=== PATIENT | female | born 1990 | race Caucasian/White ===

== ENCOUNTER 2016-11-24 00:27 | Inpatient (IN) | payer OTHER ==
[2016-11-24] MEDS ORDERED: OXYTOCIN/NORMAL SALINE 1,000 ML IV PRN ×2 (00:39→20:55)
[2016-11-24] MEDS ORDERED: DINOPROSTONE 10 MG VAGINAL INSERT.SR PV PRN (00:39)
[2016-11-24] MEDS ORDERED: RINGERS SOLUTION,LACTATED 300 ML IV ONE (00:39)
[2016-11-24] MEDS ORDERED: RINGERS SOLUTION,LACTATED 1,000 ML IV PRN (00:39)
[2016-11-24] MEDS ORDERED: MAG HYDROX/AL HYDROX/SIMETH SUSP 30 ML UDCUP PO PRN (00:41)
[2016-11-24] MEDS ORDERED: ACETAMINOPHEN 325 MG TABLET PO PRN (00:41)
[2016-11-24] MEDS ORDERED: ZOLPIDEM TARTRATE 5 MG TABLET PO SCH (00:45)
[2016-11-24 01:08] LABS: APPEARANCE,URINE CLOUDY; BILIRUBIN,URINE NEGATIVE (NEGATIVE); GLUCOSE, URINE NEGATIVE (NEGATIVE); KETONES,URINE NEGATIVE (NEGATIVE); LEUKOCYTE ESTERASE,URINE LARGE (NEGATIVE); NITRITE,URINE NEGATIVE (NEGATIVE); PROTEIN,URINE NEGATIVE (NEGATIVE); URINE SPECIFIC GRAVITY 1.017; UROBILINOGEN,URINE NEGATIVE mg/dL (<2.0)
[2016-11-24] MEDS ORDERED: DINOPROSTONE 10 MG VAGINAL INSERT.SR ONE (01:20)
[2016-11-24 01:24] LABS: ABSOLUTE EOSINOPHILS # (AUTO) 0.1 10^3/uL (0.0-0.6); ABSOLUTE LYMPHOCYTES (AUTO) 2.4 10^3/uL (0.5-4.7); ABSOLUTE MONOCYTES (AUTO) 0.7 10^3/uL (0.1-1.4); ABSOLUTE NEUT (AUTO) 8.1 10^3/uL (1.7-8.2); BASOPHILS % (AUTO) 0.3 % (0-2); EOSINOPHILS % (AUTO) 0.8 % (0-6); HEMATOCRIT 35.9 % (36.0-47.0); HEMOGLOBIN 12.2 g/dL (12.0-15.5); HGB HCT DIFFERENCE 0.7; LYMPHOCYTES % (AUTO) 21.2 % (13-45); MEAN CORPUSCULAR HEMOGLOBIN 29.7 pg (27.0-33.4); MEAN CORPUSCULAR HGB CONC 34.1 g/dL (32.0-36.0); MEAN CORPUSCULAR VOLUME 87 fl (80-97); MONOCYTES % (AUTO) 6.1 % (3-13); RED BLOOD COUNT 4.11 10^6/uL (3.72-5.28); RED CELL DISTRIBUTION WIDTH 14.8 % (11.5-14.0); SEGMENTED NEUTROPHILS % (AUTO) 71.6 % (42-78); WHITE BLOOD COUNT 11.3 10^3/uL (4.0-10.5)
[2016-11-24 01:36] LABS: URINE BARBITURATES SCREEN NEGATIVE; URINE METHADONE SCREEN NEGATIVE; URINE OPIATES LOW NEGATIVE; URINE PHENCYCLIDINE SCREEN NEGATIVE
--- NOTE | 2016-11-24 08:00 | L&D Flow Sheet ---
LD Flowsheet Datetime Report Generated by CPN: 11/24/2016 08:00 Datetime: 11/24/2016 07:45 NBP Sys/Erika/Mean (mmHg): 127 (QS system process) : 80 (QS system process) : 97 (QS system process) Pulse: 82 (QS system process) Maternal Assessment Level of Consciousness: Fully Conscious (Toma Arteaga [facility]) DTR's/Clonus: DTRs 2+; No Clonus (Toma Chandler, RNC) Headache: Denies (Toma Chandler, RNC) Breath Sounds, Left: Clear and Equal (Toma Arteaga, RNC) Breath Sounds, Right: Clear and Equal (Tomaperla Arteaga, RNC) Nausea/Vomiting: Denies (Toma Chandler, RNC) RUQ Epigastric Pain: Denies (Tomaperla Arteaga, RNC) Communication LaborFlag: Labor (QS system process) Datetime: 11/24/2016 07:00 Respirations: 18 (Janette Suazo) Uterine Activity Monitor Mode: External; Palpation (Janette Suazo) Monitor Interventions for UA: [place] Adjusted (Janette Suazo) Frequency (min): occasional (Janette Suazo) Quality: Mild (Janette Suazo) Duration (sec): 90-110 (Janette Suazo) Resting Tone (Palpate): Relaxed (Janette Suazo) Assessment A Monitor Mode: External US (Janette Suazo) Monitor Interventions for FHR: Ultrasound Adjusted (Janette Suazo) FHR Baseline Rate : 130 (Janette Suazo) FHR Baseline Changes: No Baseline Change (Janette Suazo) Variability: Moderate 6-25 bpm (Janette Suazo) Accelerations: 15X15 (Janette Suazo) Decelerations: None (Janette Suazo) Patient Position/Activity: Left Lateral (Janette Suazo) Communication LaborFlag: Labor (QS system process) Datetime: 11/24/2016 06:45 NBP Sys/Eriak/Mean (mmHg): 109 (QS system process) : 69 (QS system process) : 84 (QS system process) Pulse: 78 (QS system process) Communication LaborFlag: Labor (QS system process) Datetime: 11/24/2016 06:30 Respirations: 18 (Janette Suazo) Uterine Activity Monitor Mode: External; Palpation (Janette Suazo) Monitor Interventions for UA: [place] Adjusted (Janette Suazo) Frequency (min): none (Janette Suazo) Resting Tone (Palpate): Relaxed (Janette Suazo) Assessment A Monitor Mode: External US (Janette Suazo) Monitor Interventions for FHR: Ultrasound Adjusted (Janette Suazo) FHR Baseline Rate : 125 (Janette Suazo) FHR Baseline Changes: No Baseline Change (Janette Suazo) Variability: Moderate 6-25 bpm (Janette Suazo) Accelerations: 15X15 (Janette Suazo) Decelerations: None (Janette Suazo) Patient Position/Activity: Left Lateral (Janette Suazo) Communication LaborFlag: Labor (QS system process) Datetime: 11/24/2016 06:15 NBP Sys/Erika/Mean (mmHg): 111 (QS system process) : 71 (QS system process) : 87 (QS system process) Pulse: 72 (QS system process) Communication LaborFlag: Labor (QS system process) Datetime: 11/24/2016 06:00 Respirations: 18 (Janette Suazo) Uterine Activity Monitor Mode: External; Palpation (Janette Suazo) Monitor Interventions for UA: [place] Adjusted (Janette Suazo) Frequency (min): one ctx noted (Janette Suazo) Quality: Mild (Janette Suazo) Resting Tone (Palpate): Relaxed (Janette Suazo) Assessment A Monitor Mode: External US (Janette Suazo) Monitor Interventions for FHR: Ultrasound Adjusted (Janette Suazo) FHR Baseline Rate : 120 (Janette Suazo) FHR Baseline Changes: No Baseline Change (Janette Suazo) Variability: Moderate 6-25 bpm (Janette Suazo) Accelerations: 10X10 (Janette Suazo) Decelerations: None (Janette Suazo) Patient Position/Activity: Left Lateral (Janette Suazo) Communication LaborFlag: Labor (QS system process) Datetime: 11/24/2016 05:47 NBP Sys/Erika/Mean (mmHg): 114 (QS system process) : 70 (QS system process) : 88 (QS system process) Pulse: 73 (QS system process) Communication LaborFlag: Labor (QS system process) Datetime: 11/24/2016 05:33 Patient Care Comments: patient up to the restroom (Janette Suazo) Datetime: 11/24/2016 05:32 Respirations: 18 (Janette Suazo) Uterine Activity Monitor Mode: External; Palpation (Janette Suazo) Monitor Interventions for UA: [place] Adjusted (Janette Suazo) Frequency (min): none (Janette Suazo) Resting Tone (Palpate): Relaxed (Janette Suazo) Assessment A Monitor Mode: External US (Janette Suazo) Monitor Interventions for FHR: Ultrasound Adjusted (Janette Suazo) FHR Baseline Rate : 120 (Janette Suazo) Variability: Moderate 6-25 bpm (Janette Suazo) Accelerations: 10X10 (Janette Suazo) Decelerations: None (Janette Suzao) Patient Position/Activity: Left Lateral (Janette Suazo) Communication LaborFlag: Labor (QS system process) Datetime: 11/24/2016 05:15 NBP Sys/Erika/Mean (mmHg): 123 (QS system process) : 71 (QS system process) : 91 (QS system process) Pulse: 75 (QS system process) Communication LaborFlag: Labor (QS system process) Datetime: 11/24/2016 05:00 Respirations: 18 (Janette Suazo) Uterine Activity Monitor Mode: External; Palpation (Janette Suazo) Frequency (min): none (Janette Suazo) Resting Tone (Palpate): Relaxed (Janette Suazo) Assessment A Monitor Mode: External US (Janette Suazo) Monitor Interventions for FHR: Ultrasound Adjusted (Janette Suazo) FHR Baseline Rate : 130 (Janette Suazo) Variability: Moderate 6-25 bpm (Janette Suazo) Accelerations: 15X15 (Janette Suazo) Decelerations: None (Janette Suazo) Patient Position/Activity: Left Lateral (Janette Suazo) Communication LaborFlag: Labor (QS system process) Datetime: 11/24/2016 04:45 Patient Care Comments: patient up to the restroom (Janette Suazo) Datetime: 11/24/2016 04:29 Respirations: 18 (Janette Suazo) Uterine Activity Monitor Mode: External; Palpation (Janette Suazo) Monitor Interventions for UA: [place] Adjusted (Janette Suazo) Frequency (min): one ctx noted (Janette Suazo) Resting Tone (Palpate): Relaxed (Janette Suazo) Assessment A Monitor Mode: External US (Janette Suazo) Monitor Interventions for FHR: Ultrasound Adjusted (Janette Suazo) FHR Baseline Rate : 120 (Janette Suazo) FHR Baseline Changes: No Baseline Change (Janette Suazo) Variability: Moderate 6-25 bpm (Janette Suazo) Accelerations: 15X15 (Janette Suazo) Decelerations: None (Janette Suazo) Patient Position/Activity: Left Lateral (Janette Suazo) Communication LaborFlag: Labor (QS system process) Datetime: 11/24/2016 04:15 NBP Sys/Erika/Mean (mmHg): 115 (QS system process) : 71 (QS system process) : 88 (QS system process) Pulse: 77 (QS system process) Communication LaborFlag: Labor (QS system process) Datetime: 11/24/2016 04:00 Respirations: 18 (Janette Suazo) Uterine Activity Monitor Mode: External; Palpation (Janette Suazo) Monitor Interventions for UA: [place] Adjusted (Janette Suazo) Frequency (min): none (Janette Suazo) Resting Tone (Palpate): Relaxed (Janette Suazo) Assessment A Monitor Mode: External US (Janette Suazo) Monitor Interventions for FHR: Ultrasound Adjusted (Janette Suazo) FHR Baseline Rate : 120 (Janette Suazo) Variability: Moderate 6-25 bpm (Janette Suazo) Accelerations: 15X15 (Janette Suazo) Decelerations: None (Janette Suazo) Patient Position/Activity: Left Lateral (Janette Suazo) Communication LaborFlag: Labor (QS system process) Datetime: 11/24/2016 03:45 NBP Sys/Erika/Mean (mmHg): 125 (QS system process) : 85 (QS system process) : 100 (QS system process) Pulse: 74 (QS system process) Communication LaborFlag: Labor (QS system process) Datetime: 11/24/2016 03:30 Respirations: 18 (Janette Suazo) Uterine Activity Monitor Mode: External; Palpation (Janette Suazo) Monitor Interventions for UA: [place] Adjusted (Janette Suazo) Frequency (min): none (Janette Suazo) Resting Tone (Palpate): Relaxed (Janette Suazo) Assessment A Monitor Mode: External US (Janette Suazo) Monitor Interventions for FHR: Ultrasound Adjusted (Janette Suazo) FHR Baseline Rate : 120 (Janette Suazo) FHR Baseline Changes: No Baseline Change (Janette Suazo) Variability: Moderate 6-25 bpm (Janette Suazo) Accelerations: 10X10 (Janette Suazo) Decelerations: None (Janette Suazo) Patient Position/Activity: Left Lateral (Janette Suazo) Communication LaborFlag: Labor (QS system process) Datetime: 11/24/2016 03:16 NBP Sys/Erika/Mean (mmHg): 124 (QS system process) : 69 (QS system process) : 90 (QS system process) Pulse: 80 (QS system process) Communication LaborFlag: Labor (QS system process) Datetime: 11/24/2016 02:57 Respirations: 18 (Janette Suazo) Uterine Activity Monitor Mode: External; Palpation (Janette Suazo) Monitor Interventions for UA: [place] Adjusted (Janette Suazo) Frequency (min): none (Janette Suazo) Resting Tone (Palpate): Relaxed (Janette Suazo) Assessment A Monitor Mode: External US (Janette Suazo) Monitor Interventions for FHR: Ultrasound Adjusted (Janette Suazo) FHR Baseline Rate : 120 (Janette Suazo) FHR Baseline Changes: No Baseline Change (Janette Suazo) Variability: Moderate 6-25 bpm (Janette Suazo) Accelerations: 15X15 (Janette Suazo) Decelerations: None (Janette Suazo) Patient Position/Activity: Right Lateral (Janette Suazo) Patient Care Comments: patient up to the restroom. (Janette Suazo) Communication LaborFlag: Labor (QS system process) Datetime: 11/24/2016 02:46 NBP Sys/Erika/Mean (mmHg): 111 (QS system process) : 76 (QS system process) : 88 (QS system process) Pulse: 76 (QS system process) Communication LaborFlag: Labor (QS system process) Datetime: 11/24/2016 02:30 Respirations: 18 (Janette Suazo) Uterine Activity Monitor Mode: External; Palpation (Janette Suazo) Monitor Interventions for UA: [place] Adjusted (Janette Suazo) Frequency (min): none (Janette Suazo) Resting Tone (Palpate): Relaxed (Janette Suazo) Comments: rn at the bedside for fhr adjustment and maternal repositioning (Janette Suazo) Patient Position/Activity: Right Lateral (Janette Suazo) Communication LaborFlag: Labor (QS system process) Datetime: 11/24/2016 02:15 NBP Sys/Erika/Mean (mmHg): 116 (QS system process) : 67 (QS system process) : 86 (QS system process) Pulse: 76 (QS system process) Communication LaborFlag: Labor (QS system process) Datetime: 11/24/2016 02:00 Respirations: 18 (Janette Suazo) Uterine Activity Monitor Mode: External; Palpation (Janette Suazo) Monitor Interventions for UA: [place] Adjusted (Janette Suazo) Frequency (min): none (Janette Suazo) Resting Tone (Palpate): Relaxed (Janette Suazo) Assessment A Monitor Mode: External US (Janette Suazo) Monitor Interventions for FHR: Ultrasound Adjusted (Janette Suazo) FHR Baseline Rate : 120 (Janette Suazo) Variability: Moderate 6-25 bpm (Janette Suazo) Accelerations: 15X15 (Janette Suazo) Decelerations: None (Janette Suazo) Patient Position/Activity: Left Lateral (Janette Suazo) Communication LaborFlag: Labor (QS system process) Datetime: 11/24/2016 01:45 NBP Sys/Erika/Mean (mmHg): 120 (QS system process) : 74 (QS system process) : 89 (QS system process) Pulse: 76 (QS system process) Communication LaborFlag: Labor (QS system process) Datetime: 11/24/2016 01:30 Respirations: 18 (Janette Suazo) Uterine Activity Monitor Mode: External; Palpation (Janette Suazo) Monitor Interventions for UA: [place] Adjusted (Janette Suazo) Frequency (min): none (Janette Suazo) Resting Tone (Palpate): Relaxed (Janette Suazo) Assessment A Monitor Mode: External US (Janette Suazo) Monitor Interventions for FHR: Ultrasound Adjusted (Janette Suazo) FHR Baseline Rate : 130 (Janette Suazo) Variability: Moderate 6-25 bpm (Janette Suazo) Accelerations: 15X15 (Janette Suaoz) Decelerations: None (Janette Suazo) Patient Position/Activity: Left Lateral (Janette Suazo) Communication LaborFlag: Labor (QS system process) Datetime: 11/24/2016 01:25 Medications Cervical Ripening Agents: Cervidil (Janette Suazo) Datetime: 11/24/2016 01:24 Vaginal Exam Dilatation (cm): 2.0 (Janette Suazo) Effacement (%): thick (Janette Sauzo) Station: -3 (Janette Suazo) Exam by: A Suazo Rn (Janette Suazo) Datetime: 11/24/2016 01:13 Patient Care Comments: patient up to the restroom (Janette Suazo) Datetime: 11/24/2016 01:05 Respirations: 18 (Janette Suazo) Uterine Activity Monitor Mode: External; Palpation (Janette Suazo) Monitor Interventions for UA: [place] Adjusted (Janette Suazo) Frequency (min): none (Janette Suazo) Resting Tone (Palpate): Relaxed (Janette Suazo) Assessment A Monitor Mode: External US (Janette Suazo) Monitor Interventions for FHR: Ultrasound Adjusted (Janette Suazo) FHR Baseline Rate : 130 (Janette Suazo) Variability: Moderate 6-25 bpm (Janette Suazo) Accelerations: 15X15 (Janette Suazo) Decelerations: None (Janette Suazo) Patient Position/Activity: Left Lateral (Janette Suazo) Communication LaborFlag: Labor (QS system process) Datetime: 11/24/2016 00:55 Patient Care IV/Blood Work: IV Started; IV Bolus Started (Annotations: 18g right forearm) (Janette Suazo) Datetime: 11/24/2016 00:49 Pain Pain Scale: 0 (Janette Suazo) Pain Presence: None/Denies (Janette Suazo) Membrane Status: Intact (Janette Suazo) Vaginal Bleeding: None (Janette Suazo) Maternal Assessment Level of Consciousness: Fully Conscious (Janette Suazo) DTR's/Clonus: DTRs 2+; No Clonus (Janette Suazo) Headache: Denies (Janette Suazo) Breath Sounds, Left: Clear and Equal (Janette Suazo) Breath Sounds, Right: Clear and Equal (Janette Suazo) Nausea/Vomiting: Denies (Janette Suazo) RUQ Epigastric Pain: Denies (Janette Suazo) Patient Position/Activity: Left Tilt (Janette Suazo) Teaching Instructional Method: Verbal (Janette Suazo) Plan of Care: Plan of Care Discussed (Janette Suazo) Unit Routine: [place] to Room; [place]; Bed; Visiting Policy; Waiting Areas; Security; Phone/Cell Phone Use; Photography; Unit Personnel; Consents Signed; Handwashing; Flu/Illness Precautions; Monitoring; IV Pumps; Safety/Fall Risk Prevention; Diet/Nutrition Services; Bathroom Privileges; Routine Time Outs; Medications (Janette Suazo) Communication LaborFlag: Labor (QS system process) Datetime: 11/24/2016 00:45 NBP Sys/Erika/Mean (mmHg): 121 (QS system process) : 75 (QS system process) : 92 (QS system process) Pulse: 83 (QS system process) Communication LaborFlag: Labor (QS system process) Datetime: 11/24/2016 00:36 Vital Signs Stage of : Labor (MARYBETH Cortez) Patient Care Comments: patient to the unit for Induction of Labor (Janette Suazo)
--- NOTE | 2016-11-24 10:00 | L&D Flow Sheet ---
LD Flowsheet Datetime Report Generated by CPN: 11/24/2016 10:00 Datetime: 11/24/2016 09:30 Monitor Mode: External; Palpation (Toma Chandler, RNC) Frequency (min): 3-45 (Toma Chandler, RNC) Quality: Mild (Toma Chandler, RNC) Duration (sec): 50-90 (Toma Chandler, RNC) Duration Criteria: Less than Two 120 Second Contractions (Toma Chandler, RNC) Pattern: Normal: <= 5 Contractions in 10 Minutes (Toma Chandler, RNC) Resting Tone (Palpate): Relaxed (Toma Chandler, RNC) Monitor Mode: External US (Toma Chandler, RNC) FHR Baseline Rate : 125 (Toma Chandler, RNC) Variability: Moderate 6-25 bpm (Toma Chandler, RNC) Accelerations: Prolonged (Toma Chandler, RNC) Decelerations: None (Toma Chandler, RNC) Datetime: 11/24/2016 09:16 NBP Sys/Erika/Mean (mmHg): 140 (QS system process) : 78 (QS system process) : 102 (QS system process) Pulse: 86 (QS system process) LaborFlag: Labor (QS system process) Datetime: 11/24/2016 09:00 Monitor Mode: External; Palpation (Toma Chandler, RNC) Frequency (min): 3-5 (Toma Chandler, RNC) Quality: Mild (Toma Chandler, RNC) Duration (sec): 60-90 (Toma Chandler, RNC) Duration Criteria: Less than Two 120 Second Contractions (Toma Chandler, RNC) Pattern: Normal: <= 5 Contractions in 10 Minutes (Toma Chandler, RNC) Resting Tone (Palpate): Relaxed (Toma Chandler, RNC) Monitor Mode: External US (Toma Chandler, RNC) FHR Baseline Rate : 125 (Toma Chandler, RNC) Variability: Moderate 6-25 bpm (Toma Chandler, RNC) Accelerations: Prolonged (Toma Chandler, RNC) Decelerations: None (Toma Chandler, RNC) Datetime: 11/24/2016 08:47 I/O Interventions: Up to BR (Toma Arteaga, RNC) Datetime: 11/24/2016 08:45 NBP Sys/Erika/Mean (mmHg): 118 (QS system process) : 75 (QS system process) : 89 (QS system process) Pulse: 72 (QS system process) LaborFlag: Labor (QS system process) Datetime: 11/24/2016 08:30 Monitor Mode: External; Palpation (Toma Arteaga RNC) Frequency (min): 2.5-4 (Toma Chandler, RNC) Quality: Mild (Toma Chandler, RNC) Duration (sec): 60-90 (Toma Chandler, RNC) Duration Criteria: Less than Two 120 Second Contractions (Toma Chandler, RNC) Pattern: Normal: <= 5 Contractions in 10 Minutes (Toma Chandler, RNC) Resting Tone (Palpate): Relaxed (Toma Chandler, RNC) Monitor Mode: External US (Toma Chandler, RNC) FHR Baseline Rate : 125 (Toma Chandler, RNC) Variability: Moderate 6-25 bpm (Toma Chandler, RNC) Accelerations: 15X15 (Toma Chandler, RNC) Decelerations: None (Toma Chandler, RNC) Datetime: 11/24/2016 08:16 NBP Sys/Erika/Mean (mmHg): 119 (QS system process) : 73 (QS system process) : 90 (QS system process) Pulse: 77 (QS system process) LaborFlag: Labor (QS system process) Datetime: 11/24/2016 08:07 I/O Interventions: Up to BR (Toma Arteaga RNC) Datetime: 11/24/2016 08:00 Monitor Mode: External; Palpation (MARYBETH Cortez) Frequency (min): 5-7 (MARYBETH Cortez) Quality: Mild (Toma Arteaga RNC) Duration (sec): 50-80 (Toma Arteaga RNC) Duration Criteria: Less than Two 120 Second Contractions (Toma Arteaga RNC) Pattern: Normal: <= 5 Contractions in 10 Minutes (Toma Arteaga RNC) Resting Tone (Palpate): Relaxed (Toma Arteaga RNC) Monitor Mode: External US (MARYBETH Cortez) FHR Baseline Rate : 125 (Toma Arteaga RNC) Variability: Moderate 6-25 bpm (Toma Arteaga RNC) Accelerations: 15X15 (Toma Arteaga RNC) Decelerations: None (Toma Arteaga RNC)
--- NOTE | 2016-11-24 12:00 | L&D Flow Sheet ---
LD Flowsheet Datetime Report Generated by CPN: 11/24/2016 12:00 Datetime: 11/24/2016 10:31 Dilatation (cm): 1.0 (Toma Arteaga [facility]) Effacement (%): 70 (Toma Arteaga RN) Station: -2 (Toma Arteaga [facility]) Exam by: A Emmel CNM (Toma Arteaga RN) Membrane Status: Intact (MARYBETH Cortez) Cervix, Position: Posterior (MARYBETH Cortez) Datetime: 11/24/2016 10:00 Monitor Mode: External; Palpation (MARYBETH Cortez) Frequency (min): 3-5 (MARYBETH Cortez) Quality: Mild (MARYBETH Cortez) Duration (sec): 50-80 (MARYBETH Cortez) Duration Criteria: Less than Two 120 Second Contractions (MARYBETH Cortez) Pattern: Normal: <= 5 Contractions in 10 Minutes (MARYBETH Cortez) Resting Tone (Palpate): Relaxed (MARYBETH Cortez) Monitor Mode: External US (MARYBETH Cortez) FHR Baseline Rate : 125 (MARYBETH Cortez) Variability: Moderate 6-25 bpm (MARYBETH Cortez) Accelerations: 15X15 (MARYBETH Cortez) Decelerations: None (MARYBETH Cortez)
[2016-11-24] MEDS ORDERED: MISOPROSTOL 0.1 MG TABLET ONE (13:21)
--- NOTE | 2016-11-24 14:00 | L&D Flow Sheet ---
LD Flowsheet Datetime Report Generated by CPN: 11/24/2016 14:00 Datetime: 11/24/2016 13:30 Cervical Ripening Agents: Cytotec @ (Annotations: Cytotec 50 mcg PO) (Tomaperla Arteaga, RNC) Datetime: 11/24/2016 12:15 Vaginal Exam Comments: Cervidil removed by patient. (Toma Arteaga, [facility])
[2016-11-24] MEDS ORDERED: FENTANYL CITRATE INJ/PF 100 MCG/2 ML AMPUL ONE (15:30)
[2016-11-24] MEDS ORDERED: FENTANYL/BUPIVACAINE/NS/PF 200 MCG/100 ML RTUINJ EPI ONE (15:31)
[2016-11-24] MEDS ORDERED: EPHEDRINE SULFATE INJ 50 MG/1 ML AMPULE ONE (15:31)
[2016-11-24] MEDS ORDERED: PHENYLEPHRINE HCL INJ/PF 10 MG/1 ML SDV ONE (15:31)
[2016-11-24] MEDS ORDERED: BUPIVACAINE HCL 0.25 % INJ/PF (2.5 MG/1 ML) 30 ML VIAL ONE (15:32)
--- NOTE | 2016-11-24 15:48 | L&D Progress Notes ---
PROGRESS NOTES Datetime Report Generated by CPN: 11/24/2016 15:48 PROGRESS NOTE Procedures: Sterile Vag Exam Plan: Continue Present Management Informed Consent Obtained: Vaginal Delivery; Section Delivery; Induction of Labor; Risks, Benefits and Alternatives Discussed Vital Signs : Reviewed Comment: remove cervidil at 1130 and allow pt to eat cytotec 50 mcg po fhts average variability irregular uterine contractions if no cervical change, plan to start pitocin plan of care reviewed with pt and spouse FETUS A Variability: Moderate 6-25bpm Decelerations: None SIGNATURE SIGNATURE: [id number] Assignment: Sandra Sargent MD Signature: with User ID: Bulmaro : with User ID: Bulmaro
--- NOTE | 2016-11-24 16:00 | L&D Flow Sheet ---
LD Flowsheet Datetime Report Generated by CPN: 11/24/2016 16:00 Datetime: 11/24/2016 15:30 Monitor Mode: External; Palpation (Toma Chandler, RNC) Frequency (min): 3-6 (Toma Chandler, RNC) Quality: Mild/Moderate (Toma Chandler, RNC) Duration (sec): 50-80 (Toma Chandler, RNC) Duration Criteria: Less than Two 120 Second Contractions (Toma Chandler, RNC) Pattern: Normal: <= 5 Contractions in 10 Minutes (Toma Chandler, RNC) Resting Tone (Palpate): Relaxed (Toma Chandler, RNC) Monitor Mode: External US (Toma Chandler, RNC) FHR Baseline Rate : 155 (Toma Chandler, RNC) Variability: Moderate 6-25 bpm (Toma Chandler, RNC) Accelerations: Prolonged (Toma Chandler, RNC) Decelerations: None (Toma Chandler, RNC) Datetime: 11/24/2016 15:16 Dilatation (cm): 3.0 (Toma Arteaga, RNC) Effacement (%): 80 (Toma Arteaga, RNC) Station: -1 (Toma Arteaga, RNC) Exam by: Oj Edwards CNM (Toma Arteaga RNC) Membrane Status: Ruptured (Toma Arteaga RNC) Membranes Rupture Method: Spontaneous (Toma Arteaga, RNC) Amniotic Fluid Color: Clear (Toma Arteaga, RNC) Amniotic Fluid Amount: Moderate (Toma Arteaga, RNC) Pool: Positive (Toma Arteaga, RNC) Datetime: 11/24/2016 15:00 Monitor Mode: External; Palpation (Toma Arteaga, RNC) Frequency (min): 3-5 (Toma Arteaga, RNC) Quality: Mild/Moderate (Toma Arteaga, RNC) Duration (sec): 60-90 (Toma Arteaga, RNC) Duration Criteria: Less than Two 120 Second Contractions (Toma Arteaga, RNC) Pattern: Normal: <= 5 Contractions in 10 Minutes (Toma Arteaga, RNC) Resting Tone (Palpate): Relaxed (Toma Chandler, RNC) Monitor Mode: External US (Toma Arteaga, RNC) FHR Baseline Rate : 135 (Toma Chandler, RNC) Variability: Moderate 6-25 bpm (Toma Chandler, RNC) Accelerations: 15X15 (Toma Chandler, RNC) Decelerations: None (Toma Chandler, RNC) Datetime: 11/24/2016 14:30 Monitor Mode: External; Palpation (Toma Arteaga RNC) Frequency (min): 2-4 (Toma Arteaga, RNC) Quality: Mild (Tomamanisha Arteaga, RNC) Duration (sec): 50-80 (Toma Arteaga, RNC) Duration Criteria: Less than Two 120 Second Contractions (Toma Arteaga, RNC) Pattern: Normal: <= 5 Contractions in 10 Minutes (Toma Arteaga, RNC) Resting Tone (Palpate): Relaxed (Tomaperla Arteaga, RNC) Monitor Mode: External US (Toma Arteaga, RNC) FHR Baseline Rate : 135 (Toma Arteaga, RNC) Variability: Moderate 6-25 bpm (Tomaperla Arteaga, RNC) Accelerations: 15X15 (Toma Chandler, RNC) Decelerations: None (Tomaperla Arteaga, RNC)
--- NOTE | 2016-11-24 18:00 | L&D Flow Sheet ---
LD Flowsheet Datetime Report Generated by CPN: 11/24/2016 18:00 Datetime: 11/24/2016 17:49 NBP Sys/Erika/Mean (mmHg): 120 (QS system process) : 68 (QS system process) : 88 (QS system process) Pulse: 78 (QS system process) LaborFlag: Labor (QS system process) Datetime: 11/24/2016 17:34 NBP Sys/Erika/Mean (mmHg): 123 (QS system process) : 67 (QS system process) : 89 (QS system process) Pulse: 78 (QS system process) LaborFlag: Labor (QS system process) Datetime: 11/24/2016 17:18 NBP Sys/Erika/Mean (mmHg): 121 (QS system process) : 62 (QS system process) : 85 (QS system process) Pulse: 85 (QS system process) LaborFlag: Labor (QS system process) Datetime: 11/24/2016 17:15 Monitor Mode: External; Palpation (MARYBETH Cortez) Frequency (min): 2.5-4 (MARYBETH Cortez) Quality: Mild (MARYBETH Cortez) Duration (sec): 50-80 (MARYBETH Cortez) Duration Criteria: Less than Two 120 Second Contractions (MARYBETH Cortez) Pattern: Normal: <= 5 Contractions in 10 Minutes (MARYBETH Cortez) Resting Tone (Palpate): Relaxed (MARYBETH Cortez) Monitor Mode: External US (MARYBETH Cortez) FHR Baseline Rate : 135 (Toma Chandler, RNC) Variability: Moderate 6-25 bpm (Toma Arteaga, RNC) Accelerations: 15X15 (Toma Arteaga, RNC) Decelerations: None (Toma Arteaga, RNC) Datetime: 11/24/2016 17:04 NBP Sys/Erika/Mean (mmHg): 122 (QS system process) : 58 (QS system process) : 83 (QS system process) Pulse: 90 (QS system process) LaborFlag: Labor (QS system process) Datetime: 11/24/2016 17:00 Monitor Mode: External; Palpation (Toma Arteaga, RNC) Frequency (min): 2-3.5 (Toma Arteaga, RNC) Quality: Mild (Toma Arteaga, RNC) Duration (sec): 60-90 (Toma Arteaga, RNC) Duration Criteria: Less than Two 120 Second Contractions (Toma Arteaga, RNC) Pattern: Normal: <= 5 Contractions in 10 Minutes (Toma Arteaga, RNC) Resting Tone (Palpate): Relaxed (Toma Arteaga, RNC) Monitor Mode: External US (Toma Arteaga, RNC) FHR Baseline Rate : 140 (Tomaperla Arteaga, RNC) Variability: Moderate 6-25 bpm (Toma Chandler, RNC) Accelerations: 15X15 (Toma Chandler, RNC) Decelerations: None (Toma Chandler, RNC) Datetime: 11/24/2016 16:51 NBP Sys/Erika/Mean (mmHg): 118 (QS system process) : 80 (QS system process) : 95 (QS system process) Pulse: 94 (QS system process) LaborFlag: Labor (QS system process) Datetime: 11/24/2016 16:45 Monitor Mode: External; Palpation (Toma Arteaga, RNC) Frequency (min): 2.5-4 (Toma Chandler, RNC) Quality: Mild/Moderate (Toma Chandler, RNC) Duration (sec): 50-80 (Toma Chandler, RNC) Duration Criteria: Less than Two 120 Second Contractions (Toma Arteaga, RNC) Pattern: Normal: <= 5 Contractions in 10 Minutes (Toma Chandler, RNC) Resting Tone (Palpate): Relaxed (Toma Arteaga, RNC) Monitor Mode: External US (Toma Arteaga, RNC) FHR Baseline Rate : 135 (Toma Arteaga, RNC) Variability: Moderate 6-25 bpm (Toma Chandler, RNC) Accelerations: None (Toma Chandler, RNC) Decelerations: Early (Toma Chandler, RNC) Datetime: 11/24/2016 16:44 NBP Sys/Erika/Mean (mmHg): 119 (QS system process) : 68 (QS system process) : 89 (QS system process) Pulse: 78 (QS system process) LaborFlag: Labor (QS system process) Datetime: 11/24/2016 16:39 NBP Sys/Erika/Mean (mmHg): 116 (QS system process) : 67 (QS system process) : 87 (QS system process) Pulse: 82 (QS system process) LaborFlag: Labor (QS system process) Datetime: 11/24/2016 16:34 NBP Sys/Erika/Mean (mmHg): 114 (QS system process) : 66 (QS system process) : 84 (QS system process) Pulse: 76 (QS system process) LaborFlag: Labor (QS system process) Datetime: 11/24/2016 16:30 Monitor Mode: External; Palpation (Tomaperla Arteaga, RNC) Frequency (min): 3-5 (Toma Chandler, RNC) Quality: Mild (Toma Chandler, RNC) Duration (sec): 50-80 (Toma Chandler, RNC) Duration Criteria: Less than Two 120 Second Contractions (Toma Chandler, RNC) Pattern: Normal: <= 5 Contractions in 10 Minutes (Toma Chandler, RNC) Resting Tone (Palpate): Relaxed (Toma Chandler, RNC) Monitor Mode: External US (Toma Arteaga, RNC) FHR Baseline Rate : 135 (Toma Chandler, RNC) Variability: Moderate 6-25 bpm (Toma Chandler, RNC) Accelerations: None (Toma Chandler, RNC) Decelerations: None (Toma Chandler, RNC) Datetime: 11/24/2016 16:29 NBP Sys/Erika/Mean (mmHg): 118 (QS system process) : 69 (QS system process) : 87 (QS system process) Pulse: 80 (QS system process) LaborFlag: Labor (QS system process) Datetime: 11/24/2016 16:27 NBP Sys/Erika/Mean (mmHg): 124 (QS system process) : 71 (QS system process) : 93 (QS system process) Pulse: 79 (QS system process) LaborFlag: Labor (QS system process) Datetime: 11/24/2016 16:25 NBP Sys/Erika/Mean (mmHg): 123 (QS system process) : 64 (QS system process) : 87 (QS system process) Pulse: 81 (QS system process) I/O Interventions: Tomas Cath Inserted (MARYBETH Cortez) LaborFlag: Labor (QS system process) Datetime: 11/24/2016 16:23 NBP Sys/Erika/Mean (mmHg): 132 (QS system process) : 68 (QS system process) : 94 (QS system process) Pulse: 84 (QS system process) LaborFlag: Labor (QS system process) Datetime: 11/24/2016 16:22 NBP Sys/Erika/Mean (mmHg): 126 (QS system process) : 61 (QS system process) : 84 (QS system process) Pulse: 87 (QS system process) LaborFlag: Labor (QS system process) Datetime: 11/24/2016 16:18 NBP Sys/Erika/Mean (mmHg): 128 (QS system process) : 78 (QS system process) : 99 (QS system process) Pulse: 84 (QS system process) Pulse: 85 (QS system process) SpO2 (%): 98 (QS system process) Epidural Procedure: Cath Placed; Test Dose (MARYBETH Cortez) LaborFlag: Labor (QS system process) Datetime: 11/24/2016 16:15 NBP Sys/Erika/Mean (mmHg): 128 (QS system process) : 81 (QS system process) : 98 (QS system process) Pulse: 82 (QS system process) Procedure Verify: Correct Patient Identity; Correct Side and Site are Marked; Accurate Procedure Consent Form; Agreement on Procedure to be Done; Correct Patient Position; Relevant Images and Results are Properly Labeled and Displayed; Addressed Need to Administer Antibiotics or Fluids for Irrigation; Safety Precautions Based on Patient History or Medication Use (MARYBETH Cortez) Anesthesia Plans: Epidural (MARYBETH Cortez) Epidural Positioning: Sitting (MARYBETH Cortez) Anesthesia Comments: Dr. Lam at for Epidural placement (MARYBETH Cortez) LaborFlag: Labor (QS system process) Datetime: 11/24/2016 16:13 Pulse: 89 (QS system process) SpO2 (%): 98 (QS system process) LaborFlag: Labor (QS system process) Datetime: 11/24/2016 16:08 Pulse: 90 (QS system process) SpO2 (%): 98 (QS system process) LaborFlag: Labor (QS system process) Datetime: 11/24/2016 16:00 Monitor Mode: External; Palpation (MARYBETH Cortez) Frequency (min): 2-4 (MARYBETH Cortez) Quality: Mild/Moderate (MARYBETH Cortez) Duration (sec): 50-90 (MARYBETH Cortez) Duration Criteria: Less than Two 120 Second Contractions (MARYBETH Cortez) Pattern: Normal: <= 5 Contractions in 10 Minutes (MARYBETH Cortez) Resting Tone (Palpate): Relaxed (MARYBETH Cortez) Monitor Mode: External US (MARYBETH Cortez) FHR Baseline Rate : 145 (MARYBETH Cortez) Variability: Moderate 6-25 bpm (MARYBETH Cortez) Accelerations: 15X15 (MARYBETH Cortez) Decelerations: None (MARYBETH Cortez)
[2016-11-24] MEDS ORDERED: MISOPROSTOL 0.2 MG TABLET ONE ×2 (18:03→19:39)
[2016-11-24] MEDS ORDERED: LIDOCAINE 1% INJ-PF (10 MG/ML) 30 ML SDV ONE (18:03)
[2016-11-24] MEDS ORDERED: OXYTOCIN/NORMAL SALINE 20 UNIT/1,000 ML RTUINJ ONE (18:03)
--- NOTE | 2016-11-24 19:30 | Delivery Summary ---
Del Sum A-C Datetime Report Generated by CPN: 11/24/2016 19:30 ADMISSION DATA Admission Impression: Postterm, Intrauterine Admit Provider Comments: 26 yo admitted for IOL postdates unremarkable history EDC 11/17/16 EGA 41 weeks NKDA abdomen nontender FHTs reactive cervidil in place to be removed at 1130 adn start cytotec 50 mcg po plan of care reviewed anticipate DELIVERY PERSONNEL Delivery Doctor:: Patricia Edwards CNZuleyma Nurse Senior Technical Project Manager Certified:: Patricia Edwards CNM Labor and Delivery Nurse:: Toma Arteaga RN Special Events Fundraiser/ASSISTANT TRACK COACH: Monique Bernard CNA II MATERNAL INFORMATION Delivery Anesthesia: Epidural Medications After Delivery: Pitocin Bolus-Please Comment; Pitocin Drip 20 Units/1000ml NSS Estimated Blood Loss (ml): 450 Maternal Complications: None Provider Comments: bed prepared for delivery pt pushing well delivery of viable female apgars 9/9 bulb suctioned on perineum to abdomen tactile stimulation elicits spont cry cord clamped and cut by FOB cord blood obtained placenta delivered in walden fashion uterine atony large clots followed by gush of blood uterus massaged and explored hemostasis achieved EBL 450 cc pt bonding well with LABOR SUMMARY EDC: 11/17/2016 00:00 No. Babies in Womb: 1 Attempted: No Labor Anesthesia: Epidural LABOR INFORMATION Reason for Induction: Post Dates Onset of Labor: 11/24/2016 12:00 Complete Dilatation: 11/24/2016 17:59 Cervical Ripening Agents: Cytotec @ (Annotations: Cytotec 50 mcg PO) Oxytocin: N/A Group B Beta Strep: Negative Antibiotics # of Doses: 0 Steroids Given: None Reason Steroids Not Administered: Not Applicable MEMBRANES Membranes Rupture Method: Spontaneous Rupture of Membranes: 11/24/2016 15:16 Length of Rupture (hr): 3.43 Amniotic Fluid Color: Clear Amniotic Fluid Amount: Moderate STAGES OF LABOR Stage 1 hr: 5 Stage 1 min: 59 Stage 2 hr: 0 Stage 2 min: 43 Stage 3 hr: 0 Stage 3 min: 2 Total Time in Labor hr: 6 Total Time in Labor min: 44 VAGINAL DELIVERY Episiotomy: None Laceration Extension: Second Degree Laceration Type: Vaginal Laceration Repair: Yes Laceration Repair Note: repaired under epidural in usual fashion Sponge Count Correct: N/A CSECTION DELIVERY Primary Indication: N/A Secondary Indication: N/A CSection Incidence: N/A Labor: N/A Elective: N/A CSection Incision: N/A BABY A INFORMATION Delivery Date/Time: 11/24/2016 18:42 Method of Delivery: Vaginal Born in Route : No : N/A Forceps: N/A Vacuum Extraction: N/A Shoulder Dystocia : Yes PRESENTATION/POSITION BABY A Presentation: Cephalic Cephalic Presentation: Vertex Vertex Position: Right Occipital Anterior PLACENTA INFORMATION BABY A Placenta Delivery Time : 11/24/2016 18:44 Placenta Method of Delivery: Spontaneous Placenta Status: Delivered SCORES BABY A Heart Rate 1 min: >100 bpm Resp Effort 1 min: Good Cry Reflex Irritability 1 min: Cough or Sneeze or Pulls Away Muscle Tone 1 min: Active Motion Color 1 min: Blue/Pale Resuscitation Effort 1 min: Tactile Stimulation SCORE 1 MIN: 8 Heart Rate 5 min: >100 bpm Resp Effort 5 min: Good Cry Reflex Irritability 5 min: Cough or Sneeze or Pulls Away Muscle Tone 5 min: Active Motion Color 5 min: Body [place], Extremities Blue Resuscitation Effort 5 min: N/A SCORE 5 MIN: 9 Resuscitation Effort 10 min: N/A INFORMATION BABY A Gestational Age at Delivery: 41.0 Gestational Status: Late Term- 41- 41.6 Weeks Outcome : Liveborn Infant Condition : Stable Infant Sex: Female IDENTIFICATION BABY A Infant Verification Date/Time: 11/24/2016 19:00 ID Band Number: [id number] Mother's Name Verified: Yes Infant RN Verifying Infant: Rashi Lu SHERIE Arteaga RNC CORD INFORMATION BABY A No. Cord Vessels: 3 Nuchal Cord : Around Neck x1, Loose Cord Blood Taken: Yes-For Storage (Mom's Blood type +) Infant Suction: Mouth; Nose ASSESSMENT BABY A Complications: None Physical Findings at Delivery: Within Normal Limits Respirations: Appears Normal Skin to Skin: Yes Drainlayer/ALS Called : No Care By: K Chandler RNC Transferred To: Nursery BABY B INFORMATION : N/A SIGNATURES Assignment: Sandra Sargent MD Signature: with User ID: [email or web address] : with User ID: [email or web address]
--- NOTE | 2016-11-24 20:00 | L&D Flow Sheet ---
LD Flowsheet Datetime Report Generated by CPN: 11/24/2016 20:00 Datetime: 11/24/2016 19:48 Stage of : Recovery (Hollie Molina RN) NBP Sys/Erika/Mean (mmHg): 112 (QS system process) : 76 (QS system process) : 85 (QS system process) Pulse: 85 (QS system process) Respirations: 16 (Hollie Molina RN) Pain Scale: 0 (Hollie Molina RN) Pain Presence: None/Denies (Hollie Molina RN) Pain Type: N/A (Hollie Molina RN) Datetime: 11/24/2016 19:46 Stage of : Recovery (Ti Tracy, ) Datetime: 11/24/2016 19:35 Stage of : Recovery (Hollie Molina, ) Datetime: 11/24/2016 19:33 Stage of : Recovery (Hollie Molina RN) NBP Sys/Erika/Mean (mmHg): 112 (QS system process) : 56 (QS system process) : 80 (QS system process) Pulse: 85 (QS system process) Respirations: 16 (Hollie Molina RN) Pain Scale: 0 (Hollie Molina RN) Pain Presence: None/Denies (Hollie Molina RN) Pain Type: N/A (Hollie Molina, SHERIE) Datetime: 11/24/2016 19:23 Stage of : Recovery (Bradlyandra Molina, RN) Datetime: 11/24/2016 19:18 Stage of : Recovery (Hollie Molina, SHERIE) NBP Sys/Erika/Mean (mmHg): 122 (QS system process) : 58 (QS system process) : 81 (QS system process) Pulse: 94 (QS system process) Respirations: 16 (Hollie Molina RN) Pain Scale: 0 (Hollie Molina RN) Pain Presence: None/Denies (Hollie Molina, SHERIE) Pain Type: N/A (Hollie Molina, SHERIE) Datetime: 11/24/2016 19:03 Stage of : Recovery (Toma Arteaga [facility]) NBP Sys/Erika/Mean (mmHg): 131 (QS system process) : 57 (QS system process) : 79 (QS system process) Pulse: 103 (QS system process) Datetime: 11/24/2016 18:49 Stage of : Recovery (Toma Arteaga [facility]) NBP Sys/Erika/Mean (mmHg): 120 (QS system process) : 57 (QS system process) : 81 (QS system process) Pulse: 94 (QS system process) Respirations: 17 (Toma Arteaga [facility]) Pain Scale: 0 (Toma Arteaga [facility]) Pain Presence: None/Denies (Toma Arteaga [facility]) Datetime: 11/24/2016 18:42 Stage of : Recovery (Hollie Tracy, ) Datetime: 11/24/2016 18:30 Monitor Mode: External; Palpation (Toma Chandler, RNC) Frequency (min): 2.5-3 (Toma Chandler, RNC) Quality: Moderate to Strong (Toma Chandler, RNC) Duration (sec): 60-80 (Toma Chandler, RNC) Duration Criteria: Less than Two 120 Second Contractions (Toma Chandler, RNC) Pattern: Normal: <= 5 Contractions in 10 Minutes (Toma Chandler, RNC) Resting Tone (Palpate): Relaxed (Toma Chandler, RNC) Monitor Mode: External US (Toma Chandler, RNC) FHR Baseline Rate : 135 (Toma Chandler, RNC) Variability: Moderate 6-25 bpm (Toma Chandler, RNC) Accelerations: 15X15 (Toma Chandler, RNC) Decelerations: Variable (Toma Chandler, RNC) Datetime: 11/24/2016 18:26 Pitocin (milliunit): Pitocin Increased to (milliunits) @ 4 (Toma Chandler, RNC) Datetime: 11/24/2016 18:23 Pushing Progress: Descent with Pushing; Pushing Effectively with Contractions (Tomaperla Arteaga, RNC) Datetime: 11/24/2016 18:19 NBP Sys/Erika/Mean (mmHg): 133 (QS system process) : 87 (QS system process) : 101 (QS system process) Pulse: 80 (QS system process) Pushing: Coached on Pushing (Toma Arteaga, RNC) Pushing Position: Pushing with Contractions (Toma Arteaga, RNC) Pushing Progress: Descent with Pushing (Toma Arteaga, RNC) LaborFlag: Labor (QS system process) Datetime: 11/24/2016 18:15 Monitor Mode: External; Palpation (Toma Chandler, RNC) Frequency (min): 2-3 (Toma Chandler, RNC) Quality: Mild (Toma Chandler, RNC) Duration (sec): 60-90 (Toma Chandler, RNC) Duration Criteria: Less than Two 120 Second Contractions (Toma Chandler, RNC) Pattern: Normal: <= 5 Contractions in 10 Minutes (Toma Chandler, RNC) Resting Tone (Palpate): Relaxed (Toma Chandler, RNC) Monitor Mode: External US (Toma Chandler, RNC) FHR Baseline Rate : 135 (Toma Chandler, RNC) Variability: Moderate 6-25 bpm (Toma Chandler, RNC) Accelerations: 15X15 (Toma Chandler, RNC) Decelerations: None (Toma Chandler, RNC) Datetime: 11/24/2016 18:10 Pitocin (milliunit): Pitocin Started (milliunits) @ 2; Pitocin 20 Units in 1000ml NS (Toma Chandler, RNC) Datetime: 11/24/2016 18:00 Monitor Mode: External; Palpation (MARYBETH Cortez) Frequency (min): 3-5 (MARYBETH Cortez) Quality: Mild (MARYBETH Cortez) Duration (sec): 60-90 (MARYBETH Cortez) Duration Criteria: Less than Two 120 Second Contractions (MARYBETH Cortez) Pattern: Normal: <= 5 Contractions in 10 Minutes (MARYBETH Cortez) Resting Tone (Palpate): Relaxed (MARYBETH Cortez) Monitor Mode: External US (MARYBETH Cortez) FHR Baseline Rate : 135 (MARYBETH Cortez) Variability: Moderate 6-25 bpm (MARYBETH Cortez) Accelerations: 15X15 (MARYBETH Cortez) Decelerations: None (MARYBETH Cortez)
[2016-11-24] MEDS ORDERED: PROMETHAZINE HCL INJ 25 MG/1 ML VIAL IV PRN (20:55)
[2016-11-24] MEDS ORDERED: DIPH/PERTUSS(ACELL)/TETANUS VAC/PF 0.5 ML SYR (>=10YO) IM PRN (20:55)
[2016-11-24] MEDS ORDERED: PROMETHAZINE HCL 25 MG TABLET PO PRN (20:55)
[2016-11-24] MEDS ORDERED: PSEUDOEPHEDRINE HCL 30 MG TABLET PO PRN (20:55)
[2016-11-24] MEDS ORDERED: GLYCERIN/WITCH HAZEL LEAF 1 EACH MED..PAD TP PRN (20:55)
[2016-11-24] MEDS ORDERED: MEASLES,MUMPS&RUBELLA VACC/PF 0.5 ML VIAL SUBCUT PRN (20:55)
[2016-11-24] MEDS ORDERED: BENZOCAINE/MENTHOL AEROSOL SPRAY 56 ML TOP PRN (20:55)
[2016-11-24] MEDS ORDERED: NA PHOS,M-B/NA PHOS,DI-BA (ADULT) 133 ML ENEMA PR PRN (20:55)
[2016-11-24] MEDS ORDERED: PROMETHAZINE HCL 25 MG SUPP.RECT PR PRN (20:55)
[2016-11-24] MEDS ORDERED: MAGNESIUM HYDROXIDE SUSP 30 ML UDCUP PO PRN (20:55)
[2016-11-24] MEDS ORDERED: ACETAMINOPHEN 650 MG SUPP.RECT PR PRN (20:55)
[2016-11-24] MEDS ORDERED: ZOLPIDEM TARTRATE 5 MG TABLET PO PRN (20:55)
[2016-11-24] MEDS ORDERED: DIBUCAINE 1% OINTMENT 28 GM TP PRN (20:55)
[2016-11-24] MEDS ORDERED: DIPHENHYDRAMINE HCL 25 MG CAPSULE PO PRN (20:55)
--- NOTE | 2016-11-24 22:00 | Admission Physical ---
Datetime Report Generated by CPN: 11/24/2016 22:00 CURRENT ADMISSION Admit Plan: Admit to Unit; Initiate Labor Induction Protocol ALLERGIES Medication Allergies: No Medication Allergies: No Known Allergies (01/16/2012) OBSTETRICAL HISTORY EDC: 11/17/2016 00:00 : 1 Para: 0 Term: 0 : 0 SAB: 0 IAB: 0 Ectopic: 0 Livin Cesareans: 0 VBACs: 0 Multiple Births: 0 Gestational Diabetes: No Rh Sensitization: No Incompetent Cervix: No DYLAN: No Infertility: No ART Treatment: No Uterine Anomaly: No IUGR: No Hx Previous C/S: No Macrosomia: No Hx Loss/Stillborn: No PIH: No Hx : No Placenta Previa/Abruption: No Depression/PP Depression: No PTL/PROM: No Post Hemorrhage: No Current Procedures: Ultrasound; NST Obstetrical History Comments: G1-Current SEE RECORDS Alcohol: No Marijuana : No Cocaine: No Other Illicit Drugs: No Cigarettes: Never Smoker. 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 INFECTIOUS HISTORY Gonorrhea: No Genital Herpes: No Chlamydia: No Tuberculosis: No Syphilis: No Hepatitis: No HIV/AIDS Exposure: No Rash or Viral Illness: No HPV: No PHYSICAL EXAM General: Normal HEENT: Normal Neurologic: Normal Thyroid: Normal Heart: Normal Lungs: Normal Breast: Normal Back: Normal Abdomen: Normal Genitourinary Exam: Normal Extremities: Normal DTRs: Normal Pelvic Type: Adequate Vital Signs: Reviewed FETUS A Monitoring: External US FHR- Baseline: 140 Variability: Moderate 6-25bpm Accelerations: 15X15 Decelerations: None FHR Category: Category I Presentation: Vertex Admit Comment: 26 yo admitted for IOL postdates unremarkable history EDC 11/17/16 EGA 41 weeks NKDA abdomen nontender FHTs reactive cervidil in place to be removed at 1130 adn start cytotec 50 mcg po plan of care reviewed anticipate PLANS FOR LABOR AND DELIVERY Labor and Delivery: None Pain Management: Epidural Feeding Preference: Both Benefit of Breast Feed Discussed: Yes INFORMED CONSENT Informed Consent Obtained: Vaginal Delivery; Section Delivery; Induction of Labor; Risks, Benefits and Alternatives Discussed Assignment: Sandra Sargent MD Signature: with User ID: [email or web address] : with User ID: [email or web address]
[2016-11-24] MEDS: IBUPROFEN 800 MG TABLET PO SCH (22:40)
[2016-11-24] MEDS: FAMOTIDINE 20 MG TABLET PO SCH (22:43)
[2016-11-25] MEDS ORDERED: ACETAMINOPHEN 325 MG TABLET PO ONE (02:00)
[2016-11-25] MEDS: IBUPROFEN 800 MG TABLET PO SCH ×3 (05:58→21:06)
--- NOTE | 2016-11-25 07:00 | L&D Flow Sheet ---
LD Flowsheet Datetime Report Generated by CPN: 11/25/2016 07:00 Datetime: 11/24/2016 21:56 Stage of : Recovery (Hollie Molina, RN) Datetime: 11/24/2016 21:54 Stage of : Recovery (Rucsehsan Molina, RN) NBP Sys/Erika/Mean (mmHg): 127 (QS system process) : 75 (QS system process) : 94 (QS system process) Pulse: 102 (QS system process) Respirations: 16 (Rucsandra Tracy, RN) Pain Scale: 2 (Hollie Molina, RN) Pain Presence: Constant (Rafalavernehsan Molina, RN) Pain Type: Dull (Hollie Molina, RN) Pain Location: Perineum (Rafalavernehsan Molina, RN) Pain Goal: 2 (Hollie Molina, RN) Pain Relief Measures: Comfort Measures ([facility], ) Datetime: 11/24/2016 21:47 Stage of : Recovery (samantha Molina, ) NBP Sys/Erika/Mean (mmHg): 137 (QS system process) : 81 (QS system process) : 104 (QS system process) Pulse: 109 (QS system process) Datetime: 11/24/2016 21:40 Stage of : Recovery (Hollie Molina, ) Datetime: 11/24/2016 21:34 Stage of : Recovery (Rusamantha Molina, RN) NBP Sys/Erika/Mean (mmHg): 142 (QS system process) : 88 (QS system process) : 108 (QS system process) Pulse: 83 (QS system process) Pain Scale: 0 (Hollie Molina, RN) Pain Presence: None/Denies (Rucsandra Tracy, RN) Pain Type: N/A (Rucsandra Tracy, RN) Datetime: 11/24/2016 21:18 Stage of : Recovery (Hollie Molina, RN) NBP Sys/Erika/Mean (mmHg): 135 (QS system process) : 75 (QS system process) : 97 (QS system process) Pulse: 89 (QS system process) Respirations: 18 (Rulavernandra Molina, RN) Pain Scale: 0 (Hollie Molina, RN) Pain Presence: None/Denies (Rucsandra Molina, RN) Pain Type: N/A (Rucsandra Tracy, RN) Datetime: 11/24/2016 21:03 Stage of : Recovery (Rucsandra Tracy, RN) NBP Sys/Erika/Mean (mmHg): 135 (QS system process) : 83 (QS system process) : 102 (QS system process) Pulse: 79 (QS system process) Respirations: 18 (Rucsandra Tracy, RN) Pain Scale: 0 (Rucsandra Tracy, RN) Pain Presence: None/Denies (Rucsandra Tracy, RN) Pain Type: N/A (Rucsandra Tracy, RN) Datetime: 11/24/2016 20:48 Stage of : Recovery (Rucsandra Tracy, RN) NBP Sys/Erika/Mean (mmHg): 135 (QS system process) : 81 (QS system process) : 103 (QS system process) Pulse: 76 (QS system process) Respirations: 18 (Rucsandra Tracy, RN) Pain Scale: 0 (Rucsandra Tracy, RN) Pain Presence: None/Denies (Rucsandra Tracy, RN) Pain Type: N/A (Rucsandra Tracy, RN) Datetime: 11/24/2016 20:46 Stage of : Recovery (Hollie Molina RN) Datetime: 11/24/2016 20:35 Stage of : Recovery (Hollie Molina RN) Datetime: 11/24/2016 20:33 Stage of : Recovery (Hollie Molina RN) NBP Sys/Erika/Mean (mmHg): 117 (QS system process) : 63 (QS system process) : 84 (QS system process) Pulse: 85 (QS system process) Pain Scale: 0 (Hollie Molina RN) Pain Presence: None/Denies (Hollie Molina RN) Pain Type: N/A (Hollie Molina, RN) Datetime: 11/24/2016 20:18 Stage of : Recovery (Hollie Molina RN) NBP Sys/Erika/Mean (mmHg): 110 (QS system process) : 62 (QS system process) : 81 (QS system process) Pulse: 82 (QS system process) Respirations: 16 (Hollie Molina RN) Pain Scale: 0 (Hollie Molina RN) Pain Presence: None/Denies (Hollie Molina RN) Pain Type: N/A (Rafasamantha Youngahan, RN) Datetime: 11/24/2016 20:03 Stage of : Recovery (Hollie Molina RN) NBP Sys/Erika/Mean (mmHg): 112 (QS system process) : 69 (QS system process) : 86 (QS system process) Pulse: 88 (QS system process) Pain Scale: 0 (Hollie Molina RN) Pain Presence: None/Denies (Rucsandra Tracy, RN) Pain Type: N/A (Rafalavernjaison Tracy, RN) Datetime: 11/24/2016 19:48 Stage of : Recovery (Hollie Molina, SHERIE) NBP Sys/Erika/Mean (mmHg): 112 (QS system process) : 76 (QS system process) : 85 (QS system process) Pulse: 85 (QS system process) Respirations: 16 (Hollie Molina RN) Pain Scale: 0 (Hollie Molina RN) Pain Presence: None/Denies (Hollie Molina, RN) Pain Type: N/A (Rafalavernandra Molina, RN) Datetime: 11/24/2016 19:46 Stage of : Recovery (Hollie Tracy, RN) Datetime: 11/24/2016 19:35 Stage of : Recovery (Rucsandra Tracy, RN) Datetime: 11/24/2016 19:33 Stage of : Recovery (Rucsandra Tracy, RN) NBP Sys/Erika/Mean (mmHg): 112 (QS system process) : 56 (QS system process) : 80 (QS system process) Pulse: 85 (QS system process) Respirations: 16 (Hollie Molina RN) Pain Scale: 0 (Hollie Molina, RN) Pain Presence: None/Denies (Bradlyandra Molina, RN) Pain Type: N/A (Rucsandra Molina, RN) Datetime: 11/24/2016 19:23 Stage of : Recovery (Rucsandra Tracy, RN) Datetime: 11/24/2016 19:18 Stage of : Recovery (Hollie Molina RN) NBP Sys/Erika/Mean (mmHg): 122 (QS system process) : 58 (QS system process) : 81 (QS system process) Pulse: 94 (QS system process) Respirations: 16 (Hollie Molina RN) Temperature (F): 98.7 (Hollie Molina RN) Temperature (C): 37.1 (QS system process) Pain Scale: 0 (Hollie Molina RN) Pain Presence: None/Denies (Hollie Molina RN) Pain Type: N/A (Hollie Molina RN) Datetime: 11/24/2016 19:03 Stage of : Recovery (MARYBETH Cortez) NBP Sys/Erika/Mean (mmHg): 131 (QS system process) : 57 (QS system process) : 79 (QS system process) Pulse: 103 (QS system process)
[2016-11-25 07:57] LABS: HEMOGLOBIN 12.2 g/dL (12.0-15.5); HGB HCT DIFFERENCE -0.4; MEAN CORPUSCULAR VOLUME 88 fl (80-97); RED BLOOD COUNT 4.21 10^6/uL (3.72-5.28); RED CELL DISTRIBUTION WIDTH 14.9 % (11.5-14.0); WHITE BLOOD COUNT 18.7 10^3/uL (4.0-10.5)
[2016-11-25] MEDS ORDERED: PRENATAL VITAMIN W-O CA NO5/FE FUMARATE/FA CAPSULE PO SCH (10:00)
[2016-11-25] MEDS ORDERED: (PENDING PHARMACY ID) (Prenatal Vit/Iron Fumarate/Fa [Prenatal Tablet] 1 TAB) PO SCH (10:00)
[2016-11-25] MEDS: PRENATAL VITAMIN W-O CA NO5/FE FUMARATE/FA CAPSULE PO SCH (10:40)
[2016-11-25] MEDS: SENNOSIDES/DOCUSATE 8.6-50 MG 1 EACH TABLET PO SCH (10:40)
[2016-11-25] MEDS: FAMOTIDINE 20 MG TABLET PO SCH ×2 (10:40→21:10)
[2016-11-25] MEDS: FERROUS SULFATE 325 MG TABLET PO SCH ×2 (10:40→18:38)
[2016-11-25] MEDS: DOCUSATE SODIUM 100 MG CAPSULE PO SCH ×2 (10:41→18:38)
--- NOTE | 2016-11-25 14:11 | PDOC PROGRESS REPORT ---
Subjective-OB Subjective: Post Delivery Day: 26 year old. Denies any needs at this time. Pt doing well, no concerns. She reports light bleeding, regular diet and voiding well. Physical Exam (OB) Vital Signs: Temp Pulse Resp BP Pulse Ox 98.3 F 84 16 118/68 100 11/25/16 12:18 11/25/16 12:18 11/25/16 12:18 11/25/16 12:18 11/25/16 12:18 Intake & Output 11/24/16 11/25/16 11/26/16 06:59 06:59 06:59 Weight 78.5 kg - PIH/Pre-Eclampsia Clonus: Negative - Lochia Lochia Amount: Scant < 10 ml Lochia Color: Rubra/Red - Abdomen Description: Tender, Soft Hernia Present: No Fundal Description: Firm, Midline Fundal Height: u/u - u/2 Objective-Diagnostic Laboratory: 11/25/16 07:37 11/25/16 07:37 WBC 18.7 H RBC 4.21 Hgb 12.2 Hct 37.0 MCV 88 MCH 29.0 MCHC 33.0 RDW 14.9 H Plt Count 220 Assessment and Plan(PN) - Assessment and Plan (1) Vaginal delivery Is this a current diagnosis for this admission?: Yes - Time Spent with Patient Time with patient: Less than 15 minutes Medications reviewed and adjusted accordingly: Yes - Disposition Anticipated Discharge: Home Within: within 24 hours
--- NOTE | 2016-11-25 18:00 | L&D General Admission ---
General Admit Datetime Report Generated by CPN: 11/25/2016 18:00 INFORMATION Patient Age: 26 (11/06/2016 16:41:QS system process) EDC: 11/17/2016 00:00 (11/23/2016 23:50:Armida Samaniego RN) : 1 (11/23/2016 23:50:Armida Samaniego RN) Para: 0 (11/23/2016 23:50:Armida Samaniego RN) Term: 0 (11/23/2016 23:50:Armida Samaniego RN) : 0 (11/23/2016 23:50:Armida Samaniego RN) Spontaneous Abortions: 0 (11/23/2016 23:50:Armida Samaniego RN) Induced Abortions: 0 (11/23/2016 23:50:Armida Samaniego RN) Livin (11/23/2016 23:50:Armida Samaniego RN) Cesareans: 0 (11/23/2016 23:50:Armida Samaniego RN) VBACs: 0 (11/23/2016 23:50:Armida Samaniego RN) Ectopic: 0 (11/23/2016 23:50:Armida Samaniego RN) Multiple Births: 0 (11/23/2016 23:50:Armida Samaniego RN) Baby, Number in Womb: 1 (11/23/2016 23:50:Armida Samaniego RN) CARE Primary Computer Console Operator: [facility] (11/23/2016 23:50:Armida Samaniego RN) Month of 1st Visit: April 2016 (11/23/2016 23:50:Armida Samaniego RN) Adequate Care: Yes (11/23/2016 23:50:Armida Samaniego RN) Prepregnancy Weight (lb): 127 (11/23/2016 23:50:Armida Samaniego RN) Prepregnancy Weight (kg): 57.7 (11/23/2016 23:50:QS system process) Height (in): 63 (11/25/2016 10:04:QS system process) ALLERGIES Medication Allergy: No (11/23/2016 23:50:Armida Samaniego RN) Medication Allergies: No Known Allergies (01/16/2012) (11/06/2016 16:41:QS system process) COMMUNICATION Primary Language: Belgian (11/23/2016 23:50:Armida Samaniego RN) Medical Tx Preferred Language: Belgian (11/23/2016 23:50:Armida Samaniego RN) Communication Barrier(s): None (11/23/2016 23:50:Armida Samaniego RN) DEMOGRAPHICS Address: [address] [place] [address] [address] [place] [address] (11/06/2016 16:41:QS system process) Zipcode: [address] (11/06/2016 16:41:QS system process) Home (11/06/2016 16:41:QS system process) SSN: [id number] (11/06/2016 16:41:QS system process) Next of Kin Name: COOKIE HENRY (11/06/2016 16:41:QS system process) Next of Kin (11/06/2016 16:41:QS system process) Next of Kin Relationship: SPO (11/06/2016 16:41:QS system process) Date of : 1990 (11/06/2016 16:41:QS system process) Marital Status: (11/06/2016 16:41:QS system process) Sex: Female (11/06/2016 16:41:QS system process) Race: (11/06/2016 16:41:QS system process) Ethnicity: Non- or (11/06/2016 16:41:QS system process) Congregational: None (11/06/2016 16:41:QS system process) DRUG AND ALCOHOL USE Alcohol: No (11/23/2016 23:50:Janette Suazo) Cigarettes: Never Smoker. [id number] (11/23/2016 23:50:Janette Suazo) Marijuana: No (11/23/2016 23:50:Janette Usazo) Cocaine: No (11/23/2016 23:50:Janette Suazo) Other Illicit Drugs: No (11/23/2016 23:50:Janette Suazo) VACCINE HISTORY Tdap Vaccine: Yes (11/23/2016 23:50:Janette Suazo) Tdap Date: 2015 (11/23/2016 23:50:Janette Suazo) Engine Assembler: [facility] (11/23/2016 23:50:Janette Suazo) Feeding Preference: Both (11/23/2016 23:50:Janette Suazo) Benefit of Breast Feed Discussed: Yes (11/23/2016 23:50:MARYBETH Cortez) Tubal Ligation: No (11/23/2016 23:50:Janette Suazo) Tubal Authorization Signed: N/A (11/23/2016 23:50:Janette Suazo) Consent: N/A (11/23/2016 23:50:Janette Suazo) Consent Signed: N/A (11/23/2016 23:50:Janette Suazo) Pain Management Plans: Epidural (11/23/2016 23:50:Janette Suazo) Plans for Labor and Delivery: None (11/23/2016 23:50:Janette Suazo) Support Person: Cookie (11/23/2016 23:50:Janette Suazo) Support Person Relationship: (11/23/2016 23:50:Janette Suazo) Cultural/Spritual Practice: N/A (11/23/2016 23:50:Janette Suazo) Spir/Cult Dietary Needs: N/A (11/23/2016 23:50:Janette Suazo) LIVING SITUATION/DISCHARGE PLAN Living Arrangements: House (11/23/2016 23:50:Janette Suazo) Adequate Access to:: Electric; Heat; Refrigeration; Plumbing/Running water; Phone; Transportation (11/23/2016 23:50:Janette Gabriele) WIC Program: Yes (11/23/2016 23:50:Janette Suazo) Discharge Licensed Marriage And Family Therapist Person: cookie- (11/23/2016 23:50:Janette Suazo) Person to Help after Discharge: cookie- (11/23/2016 23:50:Janette Gabriele) Currently Using Commun Resources: No (11/23/2016 23:50:Janettececile Suazo) Outside Agency/Department Supervisor: No (11/23/2016 23:50:Janettececile Suazo) Car Seat for Discharge: Yes (11/23/2016 23:50:Janette Suazo) Adoption Requested: No (11/23/2016 23:50:Janette Suazo) Pt Contact w/infant Post : N/A (11/23/2016 23:50:Janette Gabriele) LABS Blood Type: A Positive (11/23/2016 23:50:Armida Samaniego RN) Antibody Screen: Negative (11/23/2016 23:50:Armida Samaniego RN) Rho(G) this : Not Applicable (11/23/2016 23:50:Armida Samaniego RN) Hemoglobin: 12.2 (11/25/2016 07:37:QS system process) Hematocrit: 37.0 (11/25/2016 07:37:QS system process) MCV: 88 (11/25/2016 07:37:QS system process) Group Beta Strep: Negative (11/23/2016 23:50:Armida Samaniego RN) Gonorrhea: Negative (11/23/2016 23:50:Armida Samaniego RN) Chlamydia: Negative (11/23/2016 23:50:Armida Samaniego RN) RPR/VDRL: Nonreactive (11/23/2016 23:50:Armida Samaniego RN) HIV Results: Negative (11/23/2016 23:50:Armida Samaniego RN) Hepatitis B: Negative (11/23/2016 23:50:Armida Samaniego RN) Rubella: Immune (11/23/2016 23:50:Armida Samaniego RN) Varicella: Non Susceptible (11/23/2016 23:50:Armida Samaniego RN) OB/PREVIOUS HISTORY Previous Procedures: None (11/23/2016 23:50:Armida Samaniego RN) Current Procedures: Ultrasound; NST (11/23/2016 23:50:Armida Samaniego RN) History of Previous : No (11/23/2016 23:50:Armida Samaniego RN) History of Gestational Diabetes: No (11/23/2016 23:50:Armida Samaniego RN) History of PIH: No (11/23/2016 23:50:Armida Samaniego RN) History of Incompetent Cervix: No (11/23/2016 23:50:Armida Samaniego RN) History of Placenta Previa/Abrup: No (11/23/2016 23:50:Armida Samaniego RN) History of Macrosomia: No (11/23/2016 23:50:Armida Samaniego RN) History of IUGR: No (11/23/2016 23:50:Amrida Samaniego RN) History of Hemorrhage: No (11/23/2016 23:50:Armida Samaniego RN) History of Loss/Stillborn: No (11/23/2016 23:50:Armida Samaniego RN) History of : No (11/23/2016 23:50:Armida Samaniego RN) History of D (Rh) Sensitization: No (11/23/2016 23:50:Armida Samaniego RN) History Recurrent Loss/Stillborn: No (11/23/2016 23:50:Armida Samaniego RN) History Depression/PP Depression: No (11/23/2016 23:50:Armida Samaniego RN) History of Uterine Anomaly/DYLAN: No (11/23/2016 23:50:Armida Samaniego RN) History of Infertility: No (11/23/2016 23:50:Armida Samaniego RN) History of ART Treatment: No (11/23/2016 23:50:Armida Samaniego RN) History of DYLAN: No (11/23/2016 23:50:Armida Samaniego RN) Comments Obstetrical History: G1-Current (11/23/2016 23:50:Armida Samaniego RN) MEDICAL HISTORY Med Hx Diabetes: No (11/23/2016 23:50:Armida Samaniego RN) Med Hx Hypertension: No (11/23/2016 23:50:Armida Samaniego RN) Med Hx Heart Disease: No (11/23/2016 23:50:Armida Samaniego RN) Med Hx Autoimmune Disorder: No (11/23/2016 23:50:Armida Samaniego RN) Med Hx Kidney Disease/UTI: No (11/23/2016 23:50:Armida Samaniego RN) Med Hx Neurologic/Epilepsy: No (11/23/2016 23:50:Armida Samaniego RN) Med Hx Psychiatric Disorders: No (11/23/2016 23:50:Armida Samaniego RN) Med Hx Hepatitis/Liver Disease: No (11/23/2016 23:50:Armida Samaniego RN) Med Hx Varicosities/Phlebitis: No (11/23/2016 23:50:Armida Samaniego RN) Med Hx Thyroid Dysfunction: No (11/23/2016 23:50:Armida Samaniego RN) Med Hx Trauma/Violence: No (11/23/2016 23:50:Armida Samaniego RN) Med Hx Blood Transfusion: No (11/23/2016 23:50:Armida Samaniego RN) Med Hx Pulmonary (Asthma,TB): No (11/23/2016 23:50:Armida Samaniego RN) Med Hx Breast: No (11/23/2016 23:50:Armida Samaniego RN) Med Hx DRAPERY HEAD FORMER Surgery: No (11/23/2016 23:50:Armida Samaniego RN) Med Hx Hospitalization/Surgery: No (11/23/2016 23:50:Armida Samaniego RN) Med Hx Anesthetic Complications: No (11/23/2016 23:50:Armida Samaniego RN) Med Hx Abnormal Pap Smear: Yes (11/23/2016 23:50:Armida Samaniego RN) Other Medical Diseases: No (11/23/2016 23:50:Armida Samaniego RN) Med Hx Significant Family Hx: No (11/23/2016 23:50:Armida Samaniego RN) Details of Med/Surg Hx: 01/2016-Abn pap-LGSIL +HPV/CIN1 (11/23/2016 23:50:Armida Samaniego RN) INFECTIOUS HISTORY Inf Hx Gonorrhea: No (11/23/2016 23:50:Armida Samaniego RN) Inf Hx Chlamydia: No (11/23/2016 23:50:Armida Samaniego RN) Inf Hx Syphilis: No (11/23/2016 23:50:Armida Samaniego RN) Inf Hx HIV/AIDS: No (11/23/2016 23:50:Armida Samaniego RN) Inf Hx Human Papilloma Virus: No (11/23/2016 23:50:Armida Samaniego RN) Inf Hx Pt/Partner Genital Herpes: No (11/23/2016 23:50:Armida Samaniego RN) Inf Hx Tuberculosis/Exposure: No (11/23/2016 23:50:Armida Samaniego RN) Inf Hx Hepatitis B,C: No (11/23/2016 23:50:Armida Samaniego RN) Inf Hx Rash or Viral Illness: No (11/23/2016 23:50:Armida Samaniego RN) GENETIC HISTORY Gen Hx Age >=35 at CHARLEY: No (11/23/2016 23:50:Armida Samaniego RN) Gen Hx Thalassemia: No (11/23/2016 23:50:Armida Samaniego RN) Gen Hx Congenital Heart Defect: No (11/23/2016 23:50:Armida Samaniego RN) Gen Hx Neural Tube Defect: No (11/23/2016 23:50:Armida Samaniego RN) Gen Hx Down's Syndrome: No (11/23/2016 23:50:Armida Samaniego RN) Gen Hx Kunal-Sachs: No (11/23/2016 23:50:Armida Samaniego RN) Gen Hx Pema: No (11/23/2016 23:50:Armida Samaniego RN) Gen Hx Familial Dysautonomia: No (11/23/2016 23:50:Armida Samaniego RN) Gen Hx Sickle Cell Disease/Trait: No (11/23/2016 23:50:Armida Samaniego RN) Gen Hx Hemophilia/Blood Disorder: No (11/23/2016 23:50:Armida Samaniego RN) Gen Hx Muscular Dystrophy: No (11/23/2016 23:50:Armida Samaniego RN) Gen Hx Cystic Fibrosis: No (11/23/2016 23:50:Armida Samaniego RN) Gen Hx [place] Chorea: No (11/23/2016 23:50:Armida Samaniego RN) Gen Hx Mental Retardation/Autism: No (11/23/2016 23:50:Armida Samaniego RN) Gen Hx Tested for Fragile X: No (11/23/2016 23:50:Armida Samaniego RN) Gen Hx Other Inher/Chromosomal: No (11/23/2016 23:50:Armida Samaniego RN) Gen Hx Maternal Metabolic DO: No (11/23/2016 23:50:Armida Samaniego RN) Gen Hx Pt Father or FOB Defect: No (11/23/2016 23:50:Armida Samaniego RN) Gen Hx Other Genetic History: No (11/23/2016 23:50:Armida Samaniego RN) Gen Hx Drugs/Meds since LMP: Yes (11/23/2016 23:50:Armida Samaniego RN) Gen Hx Medications: PNV (11/23/2016 23:50:Armida Samaniego RN)
--- NOTE | 2016-11-25 18:00 | L&D Current Admission ---
Current Admit Datetime Report Generated by CPN: 11/25/2016 18:00 ADMISSION INFORMATION Current Admit Date/Time: 11/24/2016 00:48 (11/24/2016 00:48:Janette Suazo) Reason for Admission: Induction of Labor (11/24/2016 00:48:Janette Suazo) Chief Complaint: Scheduled Induction of Labor (11/24/2016 00:49:Janette Suazo) EGA per Dates: 41.0 (11/24/2016 00:48:QS system process) Method of Arrival: Ambulatory (11/24/2016 00:48:Janette Suazo) Admitted From: Home (11/24/2016 00:48:Janette Suazo) Records Available: Yes (11/24/2016 00:48:Janette Suazo) General Admission Information: Reviewed (11/24/2016 00:48:Janette Suazo) General Admission Reviewed By: Oj Suazo Rn (11/24/2016 00:48:Janette Suazo) BELONGINGS/ADVANCED DIRECTIVES Other Belongings: see consent sheet (11/24/2016 00:48:Janette Suazo) Advance Direct for Healthcare: No, and Wants No Information (11/24/2016 00:48:Janette Suazo) Durable Power of Blueprinter: No (11/24/2016 00:48:Janette Suazo) Living Will: No (11/24/2016 00:48:Janette Suazo) Organ Donor: No (11/24/2016 00:48:Janette Suazo) Pt Rights Information Given: Yes (11/24/2016 00:48:Janette Suazo) Pt Understands Pt Rights: Yes (11/24/2016 00:48:Janette Suazo) Patient Rights Comments: patient access (11/24/2016 00:48:Janette Suazo) LEARNING ASSESSMENT Knowledge Level: Understands L_D Process (11/24/2016 00:48:Janette Suazo) Barriers to Learning: None (11/24/2016 00:48:Janette Suazo) Learning Readiness: Motivated (11/24/2016 00:48:Janette Suazo) Learns Best By: 1 to 1 Instruction (11/24/2016 00:48:Janette Suazo) Learning Needs: Labor and Delivery Process (11/24/2016 00:48:Janette Suazo) DOMESTIC VIOLANCE SCREENING Dom Viol Threatened/Hurt: No (11/24/2016 00:48:Janette Suazo) Hx of Abuse/Neglect past 2yrs: No (11/24/2016 00:48:Janette Suazo) Feel Unsafe Going Home: No (11/24/2016 00:48:Janette Suazo) Addt'l Observ Indicating Abuse: No (11/24/2016 00:48:Janette Suazo) Reason Unable to Complete Screen: N/A, Screen Completed (11/24/2016 00:48:Janette Suazo) Considered Personal Harm/Suicide: No (11/24/2016 00:48:Janette Suazo) NUTRITIONAL/FUNCTIONAL SCREENING Problem with Appetite >5 Days: No (11/24/2016 00:48:Janette Suazo) Chew/Swallow Difficulties: No (11/24/2016 00:48:Janette Suazo) Inappropriate Wt Gain/Loss: No (11/24/2016 00:48:Janette Suazo) Presence Skin Breakdown/Ulcer: No (11/24/2016 00:48:Janette Suazo) Special Diet: No (11/24/2016 00:48:Janette Suazo) Pt Requests Occupational Psychologist Visit: No (11/24/2016 00:48:Janette Suazo) Hx of Any of the Following?: N/A (11/24/2016 00:48:Janette Suazo) New Diagnosis of: N/A (11/24/2016 00:48:Janette Suazo) Requires Assist w/Ambulation: No (11/24/2016 00:48:Janette Suazo) Uses Assist Device to Ambulate: No (11/24/2016 00:48:Janette Suazo) Pt Requires Help w/ADL's: No (11/24/2016 00:48:Janette Suazo)
[2016-11-25] MEDS ORDERED: ACETAMINOPHEN WITH CODEINE #3 TABLET PO PRN ×2 (20:19→20:20)
--- NOTE | 2016-11-26 06:00 | L&D Current Admission ---
Current Admit Datetime Report Generated by CPN: 11/26/2016 06:00 ADMISSION INFORMATION Current Admit Date/Time: 11/24/2016 00:48 (11/24/2016 00:48:Janette Suazo) Reason for Admission: Induction of Labor (11/24/2016 00:48:Janette Suazo) Chief Complaint: Scheduled Induction of Labor (11/24/2016 00:49:Janette Suazo) EGA per Dates: 41.0 (11/24/2016 00:48:QS system process) Method of Arrival: Ambulatory (11/24/2016 00:48:Janette Suazo) Admitted From: Home (11/24/2016 00:48:Janette Suazo) Records Available: Yes (11/24/2016 00:48:Janette Suazo) General Admission Information: Reviewed (11/24/2016 00:48:Janette Suazo) General Admission Reviewed By: Oj Suazo Rn (11/24/2016 00:48:Janette Suazo) BELONGINGS/ADVANCED DIRECTIVES Other Belongings: see consent sheet (11/24/2016 00:48:Janette Suazo) Advance Direct for Healthcare: No, and Wants No Information (11/24/2016 00:48:Janette Suazo) Durable Power of S Iron Worker: No (11/24/2016 00:48:Janette Suazo) Living Will: No (11/24/2016 00:48:Janette Suazo) Organ Donor: No (11/24/2016 00:48:Janette Suazo) Pt Rights Information Given: Yes (11/24/2016 00:48:Janette Suazo) Pt Understands Pt Rights: Yes (11/24/2016 00:48:Janette Suazo) Patient Rights Comments: patient access (11/24/2016 00:48:Janette Suazo) LEARNING ASSESSMENT Knowledge Level: Understands L_D Process (11/24/2016 00:48:Janette Suazo) Barriers to Learning: None (11/24/2016 00:48:Janette Suazo) Learning Readiness: Motivated (11/24/2016 00:48:Janette Suazo) Learns Best By: 1 to 1 Instruction (11/24/2016 00:48:Janette Suazo) Learning Needs: Labor and Delivery Process (11/24/2016 00:48:Janette Suazo) DOMESTIC VIOLANCE SCREENING Dom Viol Threatened/Hurt: No (11/24/2016 00:48:Janette Suazo) Hx of Abuse/Neglect past 2yrs: No (11/24/2016 00:48:Janette Suazo) Feel Unsafe Going Home: No (11/24/2016 00:48:Janette Suazo) Addt'l Observ Indicating Abuse: No (11/24/2016 00:48:Janette Suazo) Reason Unable to Complete Screen: N/A, Screen Completed (11/24/2016 00:48:Janette Suazo) Considered Personal Harm/Suicide: No (11/24/2016 00:48:Janette Suazo) NUTRITIONAL/FUNCTIONAL SCREENING Problem with Appetite >5 Days: No (11/24/2016 00:48:Janette Suazo) Chew/Swallow Difficulties: No (11/24/2016 00:48:Janette Suazo) Inappropriate Wt Gain/Loss: No (11/24/2016 00:48:Janette Suazo) Presence Skin Breakdown/Ulcer: No (11/24/2016 00:48:Janette Suazo) Special Diet: No (11/24/2016 00:48:Janette Suazo) Pt Requests Bench Examiner Visit: No (11/24/2016 00:48:Janette Suazo) Hx of Any of the Following?: N/A (11/24/2016 00:48:Janette Suazo) New Diagnosis of: N/A (11/24/2016 00:48:Janette Suazo) Requires Assist w/Ambulation: No (11/24/2016 00:48:Janette Suazo) Uses Assist Device to Ambulate: No (11/24/2016 00:48:Janette Suazo) Pt Requires Help w/ADL's: No (11/24/2016 00:48:Janette Suazo)
[2016-11-26] MEDS: IBUPROFEN 800 MG TABLET PO SCH (06:01)
--- NOTE | 2016-11-26 06:01 | L&D General Admission ---
General Admit Datetime Report Generated by CPN: 11/26/2016 06:00 INFORMATION Patient Age: 26 (11/06/2016 16:41:QS system process) EDC: 11/17/2016 00:00 (11/23/2016 23:50:Armida Samaniego RN) : 1 (11/23/2016 23:50:Armida Samaniego RN) Para: 0 (11/23/2016 23:50:Armida Samaniego RN) Term: 0 (11/23/2016 23:50:Armida Samaniego RN) : 0 (11/23/2016 23:50:Armida Samaniego RN) Spontaneous Abortions: 0 (11/23/2016 23:50:Armida Samaniego RN) Induced Abortions: 0 (11/23/2016 23:50:Armida Samaniego RN) Livin (11/23/2016 23:50:Armida Samaniego RN) Cesareans: 0 (11/23/2016 23:50:Armida Samaniego RN) VBACs: 0 (11/23/2016 23:50:Armida Samaniego RN) Ectopic: 0 (11/23/2016 23:50:Armida Samaniego RN) Multiple Births: 0 (11/23/2016 23:50:Armida Samaniego RN) Baby, Number in Womb: 1 (11/23/2016 23:50:Armida Samaniego RN) CARE Primary Manager Mining: [facility] (11/23/2016 23:50:Armida Samaniego RN) Month of 1st Visit: April 2016 (11/23/2016 23:50:Armida Samaniego RN) Adequate Care: Yes (11/23/2016 23:50:Armida Samaniego RN) Prepregnancy Weight (lb): 127 (11/23/2016 23:50:Armida Samaniego RN) Prepregnancy Weight (kg): 57.7 (11/23/2016 23:50:QS system process) Height (in): 63 (11/25/2016 10:04:QS system process) ALLERGIES Medication Allergy: No (11/23/2016 23:50:Armida Samaniego RN) Medication Allergies: No Known Allergies (01/16/2012) (11/06/2016 16:41:QS system process) COMMUNICATION Primary Language: Czech (11/23/2016 23:50:Armida Samaniego RN) Medical Tx Preferred Language: Czech (11/23/2016 23:50:Armida Samaniego RN) Communication Barrier(s): None (11/23/2016 23:50:Armida Samaniego RN) DEMOGRAPHICS Address: [address] [place] [address] [address] [place] [address] (11/06/2016 16:41:QS system process) Zipcode: [address] (11/06/2016 16:41:QS system process) Home (11/06/2016 16:41:QS system process) SSN: [id number] (11/06/2016 16:41:QS system process) Next of Kin Name: COOKIE HENRY (11/06/2016 16:41:QS system process) Next of Kin (11/06/2016 16:41:QS system process) Next of Kin Relationship: SPO (11/06/2016 16:41:QS system process) Date of : 1990 (11/06/2016 16:41:QS system process) Marital Status: (11/06/2016 16:41:QS system process) Sex: Female (11/06/2016 16:41:QS system process) Race: (11/06/2016 16:41:QS system process) Ethnicity: Non- or (11/06/2016 16:41:QS system process) Druze: None (11/06/2016 16:41:QS system process) DRUG AND ALCOHOL USE Alcohol: No (11/23/2016 23:50:Janette Suazo) Cigarettes: Never Smoker. [id number] (11/23/2016 23:50:Janette Suazo) Marijuana: No (11/23/2016 23:50:Janette Suazo) Cocaine: No (11/23/2016 23:50:Janette Suazo) Other Illicit Drugs: No (11/23/2016 23:50:Janette Suazo) VACCINE HISTORY Tdap Vaccine: Yes (11/23/2016 23:50:Janette Suazo) Tdap Date: 2015 (11/23/2016 23:50:Janette Suazo) Furniture Lumber Production Worker: [facility] (11/23/2016 23:50:Janette Suazo) Feeding Preference: Both (11/23/2016 23:50:Janette Suazo) Benefit of Breast Feed Discussed: Yes (11/23/2016 23:50:MARYBETH Cortez) Tubal Ligation: No (11/23/2016 23:50:Janette Suazo) Tubal Authorization Signed: N/A (11/23/2016 23:50:Janette Suazo) Consent: N/A (11/23/2016 23:50:Janette Suazo) Consent Signed: N/A (11/23/2016 23:50:Janette Suazo) Pain Management Plans: Epidural (11/23/2016 23:50:Janette Suazo) Plans for Labor and Delivery: None (11/23/2016 23:50:Janette Suazo) Support Person: Cookie (11/23/2016 23:50:Janette Suazo) Support Person Relationship: (11/23/2016 23:50:Janette Suazo) Cultural/Spritual Practice: N/A (11/23/2016 23:50:Janette Suazo) Spir/Cult Dietary Needs: N/A (11/23/2016 23:50:Janette Suazo) LIVING SITUATION/DISCHARGE PLAN Living Arrangements: House (11/23/2016 23:50:Janette Suazo) Adequate Access to:: Electric; Heat; Refrigeration; Plumbing/Running water; Phone; Transportation (11/23/2016 23:50:Janette Gabriele) WIC Program: Yes (11/23/2016 23:50:Janette Suazo) Discharge Motel Operator Person: cookie- (11/23/2016 23:50:Janette Suazo) Person to Help after Discharge: cookie- (11/23/2016 23:50:Janette Gabriele) Currently Using Commun Resources: No (11/23/2016 23:50:Janettececile Suazo) Outside Agency/Spar Machine Operator Helper: No (11/23/2016 23:50:Janettececile Suazo) Car Seat for Discharge: Yes (11/23/2016 23:50:Janette Suazo) Adoption Requested: No (11/23/2016 23:50:Janette Suazo) Pt Contact w/infant Post : N/A (11/23/2016 23:50:Janette Gabriele) LABS Blood Type: A Positive (11/23/2016 23:50:Armida Samaniego RN) Antibody Screen: Negative (11/23/2016 23:50:Armida Samaniego RN) Rho(G) this : Not Applicable (11/23/2016 23:50:Armida Samaniego RN) Hemoglobin: 12.2 (11/25/2016 07:37:QS system process) Hematocrit: 37.0 (11/25/2016 07:37:QS system process) MCV: 88 (11/25/2016 07:37:QS system process) Group Beta Strep: Negative (11/23/2016 23:50:Armida Samaniego RN) Gonorrhea: Negative (11/23/2016 23:50:Armida Samaniego RN) Chlamydia: Negative (11/23/2016 23:50:Armida Samaniego RN) RPR/VDRL: Nonreactive (11/23/2016 23:50:Armida Samaniego RN) HIV Results: Negative (11/23/2016 23:50:Armida Samaniego RN) Hepatitis B: Negative (11/23/2016 23:50:Armida Samaniego RN) Rubella: Immune (11/23/2016 23:50:Armida Samaniego RN) Varicella: Non Susceptible (11/23/2016 23:50:Armida Samaniego RN) OB/PREVIOUS HISTORY Previous Procedures: None (11/23/2016 23:50:Armida Samaniego RN) Current Procedures: Ultrasound; NST (11/23/2016 23:50:Armida Samaniego RN) History of Previous : No (11/23/2016 23:50:Armida Samaniego RN) History of Gestational Diabetes: No (11/23/2016 23:50:Armida Samaniego RN) History of PIH: No (11/23/2016 23:50:Armida Samaniego RN) History of Incompetent Cervix: No (11/23/2016 23:50:Armida Samaniego RN) History of Placenta Previa/Abrup: No (11/23/2016 23:50:Armida Samaniego RN) History of Macrosomia: No (11/23/2016 23:50:Armida Samaniego RN) History of IUGR: No (11/23/2016 23:50:Armida Samaniego RN) History of Hemorrhage: No (11/23/2016 23:50:Armida Samaniego RN) History of Loss/Stillborn: No (11/23/2016 23:50:Armida Samaniego RN) History of : No (11/23/2016 23:50:Armida Samaniego RN) History of D (Rh) Sensitization: No (11/23/2016 23:50:Armida Samaniego RN) History Recurrent Loss/Stillborn: No (11/23/2016 23:50:Armida Samaniego RN) History Depression/PP Depression: No (11/23/2016 23:50:Armida Samaniego RN) History of Uterine Anomaly/DYLAN: No (11/23/2016 23:50:Armida Samaniego RN) History of Infertility: No (11/23/2016 23:50:Armida Samaniego RN) History of ART Treatment: No (11/23/2016 23:50:Armida Samaniego RN) History of DYLAN: No (11/23/2016 23:50:Armida Samaniego RN) Comments Obstetrical History: G1-Current (11/23/2016 23:50:Armida Samaniego RN) MEDICAL HISTORY Med Hx Diabetes: No (11/23/2016 23:50:Armida Samaniego RN) Med Hx Hypertension: No (11/23/2016 23:50:Armida Samaniego RN) Med Hx Heart Disease: No (11/23/2016 23:50:Armida Samaniego RN) Med Hx Autoimmune Disorder: No (11/23/2016 23:50:Armida Samaniego RN) Med Hx Kidney Disease/UTI: No (11/23/2016 23:50:Armida Samaniego RN) Med Hx Neurologic/Epilepsy: No (11/23/2016 23:50:Armida Samaniego RN) Med Hx Psychiatric Disorders: No (11/23/2016 23:50:Armida Samaniego RN) Med Hx Hepatitis/Liver Disease: No (11/23/2016 23:50:Armida Samaniego RN) Med Hx Varicosities/Phlebitis: No (11/23/2016 23:50:Armida Samaniego RN) Med Hx Thyroid Dysfunction: No (11/23/2016 23:50:Armida Samaniego RN) Med Hx Trauma/Violence: No (11/23/2016 23:50:Armida Samaniego RN) Med Hx Blood Transfusion: No (11/23/2016 23:50:Armida Samaniego RN) Med Hx Pulmonary (Asthma,TB): No (11/23/2016 23:50:Armida Samaniego RN) Med Hx Breast: No (11/23/2016 23:50:Armida Samaniego RN) Med Hx FUNERAL ARRANGEMENT DIRECTOR Surgery: No (11/23/2016 23:50:Armida Samaniego RN) Med Hx Hospitalization/Surgery: No (11/23/2016 23:50:Armida Samaniego RN) Med Hx Anesthetic Complications: No (11/23/2016 23:50:Armida Samaniego RN) Med Hx Abnormal Pap Smear: Yes (11/23/2016 23:50:Armida Samaniego RN) Other Medical Diseases: No (11/23/2016 23:50:Armida Samaniego RN) Med Hx Significant Family Hx: No (11/23/2016 23:50:Armida Samaniego RN) Details of Med/Surg Hx: 01/2016-Abn pap-LGSIL +HPV/CIN1 (11/23/2016 23:50:Armida Samaniego RN) INFECTIOUS HISTORY Inf Hx Gonorrhea: No (11/23/2016 23:50:Armida Samaniego RN) Inf Hx Chlamydia: No (11/23/2016 23:50:Armida Samaniego RN) Inf Hx Syphilis: No (11/23/2016 23:50:Armida Samaniego RN) Inf Hx HIV/AIDS: No (11/23/2016 23:50:Armida Samaniego RN) Inf Hx Human Papilloma Virus: No (11/23/2016 23:50:Armida Samaniego RN) Inf Hx Pt/Partner Genital Herpes: No (11/23/2016 23:50:Armida Samaniego RN) Inf Hx Tuberculosis/Exposure: No (11/23/2016 23:50:Armida Samaniego RN) Inf Hx Hepatitis B,C: No (11/23/2016 23:50:Armida Samaniego RN) Inf Hx Rash or Viral Illness: No (11/23/2016 23:50:Armida Samaniego RN) GENETIC HISTORY Gen Hx Age >=35 at [facility]: No (11/23/2016 23:50:Armida Samaniego RN) Gen Hx Thalassemia: No (11/23/2016 23:50:Armida Samaniego RN) Gen Hx Congenital Heart Defect: No (11/23/2016 23:50:Armida Samaniego RN) Gen Hx Neural Tube Defect: No (11/23/2016 23:50:Armida Samaniego RN) Gen Hx Down's Syndrome: No (11/23/2016 23:50:Armida Samaniego RN) Gen Hx Kunal-Sachs: No (11/23/2016 23:50:Armida Samaniego RN) Gen Hx Pema: No (11/23/2016 23:50:Armida Samaniego RN) Gen Hx Familial Dysautonomia: No (11/23/2016 23:50:Armida Samaniego RN) Gen Hx Sickle Cell Disease/Trait: No (11/23/2016 23:50:Armida Samaniego RN) Gen Hx Hemophilia/Blood Disorder: No (11/23/2016 23:50:Armida Samaniego RN) Gen Hx Muscular Dystrophy: No (11/23/2016 23:50:Armida Samaniego RN) Gen Hx Cystic Fibrosis: No (11/23/2016 23:50:Armida Samaniego RN) Gen Hx [place] Chorea: No (11/23/2016 23:50:Armida Samaniego RN) Gen Hx Mental Retardation/Autism: No (11/23/2016 23:50:Armida Samaniego RN) Gen Hx Tested for Fragile X: No (11/23/2016 23:50:Armida Samaniego RN) Gen Hx Other Inher/Chromosomal: No (11/23/2016 23:50:Armida Samaniego RN) Gen Hx Maternal Metabolic DO: No (11/23/2016 23:50:Armida Samaniego RN) Gen Hx Pt Father or FOB Defect: No (11/23/2016 23:50:Armida Samaniego RN) Gen Hx Other Genetic History: No (11/23/2016 23:50:Armida Samaniego RN) Gen Hx Drugs/Meds since LMP: Yes (11/23/2016 23:50:Armida Samaniego RN) Gen Hx Medications: PNV (11/23/2016 23:50:Armida Samaniego RN)
--- NOTE | 2016-11-26 06:16 | L&D Care Plan ---
LD CARE PLANS Datetime Report Generated by CPN: 11/26/2016 06:15 Datetime: 11/24/2016 00:44 Pain State: Risk For (Armida Samaniego RN) Related To: Labor and Delivery Process; Treatment and Procedures; Post (Armida Samaniego RN) Goal(s): Patients Pain will be Assessed and Managed; Patient will Verbalize Adequate Relief of Pain or the Ability to [place] with Current Pain (Armida Samaniego RN) Interventions: Assess Pain Severity on Scale of 0 (None) to 5 (Severe); Assess Type, Location and Intensity of Pain Each Time Client Reports Discomfort and Notify Provider if Unusal Pain Develops; Encourage Proper Breathing and Relaxation Techniques; Offer Alternatives Such as Repositioning, Calm Environment, Massages, Diversional Activities, Ice Pack, Splinting, and Ambulation; Administer Analgesics as Ordered; Assist with Epidural Placement as Appropriate; Evaluate Therapeutic Effectiveness of Medication and Treatments (Armida Samaniego RN) Outcome: Patient will Report Absence or Relief of Pain Consistent with Established Pain Goal (Armida Samaniego RN) Status: Ongoing (Armida Samaniego RN) Outcome: Patient will have a Decrease in Signs and Symptoms of Discomfort (Armida Samaniego RN) Status: Ongoing (Armida Samaniego RN) Outcome: Pain will be Controlled During Procedures (Armida Samaniego RN) Status: Ongoing (Armida Samaniego RN) Anxiety State: Risk For (Armida Samaniego RN) Related To: Labor and Delivery Process; Perceived or Actual Threat to ; Fear of Unknown; Situational Crisis; Significant Life Event (Armida Samaniego RN) Goal(s): Patient will have Decreased Anxiety and be able to Function at Acceptable Levels (Armida Samaniego RN) Interventions: Assess Verbal and Nonverbal Behavioral Indicators of Anxiety; Assist Patient to Identify and Verbalize Symptoms of Anxiety; Identify and Demonstrate Techniques to Control Anxiety; Assist Patient with Coping Mechanisms to Manage Anxiety; Provide Theraputic Touch for the Patient; Explain to Patient, Using a Calm Reassuring Approach and Nonmedical Terms, All Activities, Procedures, and Concerns; Instruct Patient and Family about Post Discharge Care, Limitations, Symptoms to Report and Resources Available (Armida Samaniego RN) Outcome: Patient will Identify, Verbalize and Demonstrate Techniques to Control Anxiety (Armida Samaniego RN) Status: Ongoing (Armida Samaniego RN) Outcome: Patient's Posture, Facial Expressions, Gestures and Activity Level will Reflect Decreased Anxiety (Armida Samaniego RN) Status: Ongoing (Armida Samaniego RN) Outcome: Patient will Verbalize a Sense of Control and/or Acceptance of the Situation (Armida Samaniego RN) Status: Ongoing (Armida Samaniego RN) Outcome: Patient will Identify and Utilize Support Person (Armida Samaniego RN) Status: Ongoing (Armida Samaniego RN) Knowledge Deficit State: Risk For (Armida Samaniego RN) Related To: Labor and Delivery Process; Treatment and Procedures; Impending Alterations in Family Dynamics; Feeding and Care; Community Resources and Available Support Mechanisms (Armida Samaniego RN) Goal(s): Patient will Accurately Verbalize Understanding of Plan of Care and Treatment; Patient and Family will Accurately Verbalize Understanding of the Disease Process (Armida Samaniego RN) Interventions: Assess Motivation and Willingness of Patient/Family to Learn; Assess Preferred Learning Mode: One to One Instruction, Reading, Videos, Group Discussion or Demonstration; Assess Barriers to Learning: Pain, Emotional State, Language Barrier, Cognitive Impairment, Visual or Hearing Deficits; Assess Patient and Family Knowledge of Disease Process, Medications and Treatment; Discuss Therapy and/or Treatment Options, Describe Rationale Behind Management, Therapy and Treatment Recommendations; Instruct Patient and Family on Signs and Symptoms to Report; Instruct Patient and Family on Medication Effects and Side Effects; Provide Appropriate and Timely Education Using Multiple Techniques; Provide Patient and Family with Support Group Information and Resources; Give Clear and Thorough Explanations and Demonstrations (Armida Samaniego RN) Outcome: Patient and Family will Verbalize Understanding of Condition, Treatment and Signs and Symptoms to Report (Armida Samaniego RN) Status: Ongoing (Armida Samaniego RN) Outcome: Patient will Identify Perceived Learning Needs and Express Motivation to Learn (Armida Samaniego RN) Status: Ongoing (Armida Samaniego RN) Outcome: Patient will Verbalize Understanding of Desired Content, and/or Performs Desired Skill Prior to Discharge (Armida Samaniego RN) Status: Ongoing (Armida Samaniego RN) Infection State: Risk For (Armida Samaniego RN) Related To: Prolonged Labor or Induction; Invasive Procedures; Altered Tissue Integrity (Armida Samaniego RN) Goal(s): The Patient will be Free of Infection, Vital Signs Stable and Lab Work within Normal Parameters (Armida Samaniego RN) Interventions: Instruct and Reinforce Proper Handwashing, Hygiene, and Care Techniques to Patient and Family; Monitor Vital Signs; Monitor Patient for the Following Signs of Infection: Fever, Abdominal Tenderness, Unusual Discharge; Monitor Aminiotic Fluid, Urine and Lochia for Color and Odor; Observe Wounds, Incisions and Invasive Line Sites for Redness, Drainage and Edema; Assess IV Sites per Hospital Policy; Monitor Lab and Test Results and Notify Provider of Abnormal Findings; Assess Nutritional Status and Promote Good Nutrition (Armida Samaniego RN) Outcome: Patient will Remain Free of Infection (Armida Samaniego RN) Status: Ongoing (Armida Samaniego RN) Outcome: Infection will be Recognized Early to Allow for Prompt Treatment (Armida Samaniego RN) Status: Ongoing (Armida Samaniego RN) Outcome: Patient will have Vital Signs Within Expected Range (Armida Samaniego RN) Status: Ongoing (Armida Samaniego RN) Fluid Volume State: Risk For (Armida Samaniego RN) Related To: Prolonged Labor or Induction (Armida Samaniego RN) Goal(s): Patient will Achieve and Maintain a Balanced Fluid Volume Status; Hemodynamically Stable (Armida Samaniego RN) Interventions: Monitor Vital Signs; Auscultate Breath Sounds; Monitor Patient for Skin Turgor, Mucous Membranes, Dry Skin, Weakness, Headaches and Confusion; Provide Oral Fluids as Ordered; Initiate and Maintain Intravenous Fluids as Ordered; Monitor Intake and Output as Indicated Per Patient Status; Accurately Measure Blood Loss; Monitor Lab and Test Results as Obtained and Notify Provider of Abnormal Findings; Monitor Patient's Weight (Armida Samaniego RN) Outcome: Patient will have Clear Lung Sounds (Armida Samaniego RN) Status: Ongoing (Armida Samaniego RN) Outcome: Patient will have Vital Signs within Expected Range (Armida Samaniego RN) Status: Ongoing (Armida Samaniego RN) Outcome: Urine Output will be within Expected Range (Armida Samaniego RN) Status: Ongoing (Armida Samaniego RN) Outcome: Patient will have Minimal Generalized or Upper Extremity Edema (Armida Samaniego, SHERIE) Status: Ongoing (Armida Samaniego, SHERIE) Injury State: Risk For (Armida Samaniego RN) Related To: Labor and Delivery Process (Armida Samaniego RN) Goal(s): Patient will Remain Free from Injury (Armida Samaniego RN) Interventions: Monitoring as per Hospital Protocol; Assess Neurological Status; Perform Risk Assessment of Patients with Induction and ; Perform Fall Risk Assessment and Prevention per Hospital Protocol; Perform DVT Risk Assessment and Prophylaxis per Hospital Protocol; Ensure that Oxygen, Suction, and Resuscitation Medications and Equipment are Readily Available; Confirm Patient ID Prior to Procedure(s) and Medication Administration per Hospital Policy (Armida Samaniego RN) Outcome: Successful Fall Risk Prevention (Armida Samaniego RN) Status: Ongoing (Armida Samaniego RN) Outcome: Patient will Deliver without Adverse [place] (Armida Samaniego RN) Status: Ongoing (Armida Samaniego RN) Outcome: Patient's Neurological Status will Remain Stable (Armida Samaniego RN) Status: Ongoing (Armida Samaniego, RN) Impaired Skin Integrity State: Risk For (Armida Samaniego RN) Related To: Vaginal Delivery; Altered Tissue Integrity; Invasive Procedures (Armida Samaniego RN) Goal(s): Patient will Maintain Optimal Skin Integrity, Free of Breakdown, Injury or Infection (Armida Samaniego RN) Interventions: Complete Screening for Pressure Ulcer Risk and Initiate Protocol per Hospital Policy; Monitor Site of Skin Impairment for Color Changes, Redness, Swelling, Warmth, Pain or Other Signs of Infection; Encourage and Assist with Position Changes; Monitor Patient's Mobility Status; Provide Adequate Nutrition and Fluids; Teach Patient Appropriate Hygienic Care; Teach Patient/Family Skin Care Management (Armida Samaniego RN) Outcome: Patient will not have Evidence of Injury Such as Skin Breakdown, Scrapes, Cuts, or Bruising (Armida Samaniego RN) Status: Ongoing (Armida Samaniego RN) Outcome: Patient will Report Any Altered Sensation or Pain at Site of Skin Impairment (Armida Samaniego RN) Status: Ongoing (Armida Samaniego RN) Outcome: Patients Incisions and Wounds will be without Signs or Symptoms of Infection (Armida Samaniego RN) Status: Ongoing (Armida Samaniego RN) Outcome: Patient will Demonstrate Understanding of Plan to Heal Skin and Prevent Reinjury and Verbalize Risk Factors (Armida Samaniego RN) Status: Ongoing (Armida Samaniego RN) Parenting Impaired State: Not Applicable (Armida Lattibeaudeir, RN) Nutrition State: Risk For (Armida Samaniego RN) Related To: (Armida Samaniego RN) Goal(s): Patient will have an Intake of Nutrients Sufficient to Meet Metabolic Needs (Armida Samaniego RN) Interventions: Nutritional Screening and Assessment per Hospital Policy; Allow Patient to Plan and Order Diet when Possible; Monitor Laboratory Values That Indicate Nutritional Well-being (Armida Samaniego RN) Outcome: Patient will Receive Adequate Calories and Fluid Volume to Meet Metabolic Needs (Armida Samaniego RN) Status: Ongoing (Armida Samaniego RN) Outcome: Patient will Select Foods or Meals that Support Adequate Nutrition (Armida Samaniego RN) Status: Ongoing (Armida Samaniego, RN) Grieving State: Not Applicable (Armida Lattibeaudeir, RN) Additional Care Plan State: Not Applicable Fredrick Samaniego RN)
[2016-11-26 06:48] LABS: ABSOLUTE BASOPHILS # (AUTO) 0.1 10^3/uL (0.0-0.2); ABSOLUTE EOSINOPHILS # (AUTO) 0.2 10^3/uL (0.0-0.6); ABSOLUTE LYMPHOCYTES (AUTO) 2.7 10^3/uL (0.5-4.7); ABSOLUTE MONOCYTES (AUTO) 0.8 10^3/uL (0.1-1.4); ABSOLUTE NEUT (AUTO) 8.3 10^3/uL (1.7-8.2); BASOPHILS % (AUTO) 0.5 % (0-2); EOSINOPHILS % (AUTO) 1.7 % (0-6); HEMATOCRIT 33.8 % (36.0-47.0); HEMOGLOBIN 11.4 g/dL (12.0-15.5); HGB HCT DIFFERENCE 0.4; LYMPHOCYTES % (AUTO) 22.7 % (13-45); MEAN CORPUSCULAR HEMOGLOBIN 29.9 pg (27.0-33.4); MEAN CORPUSCULAR HGB CONC 33.9 g/dL (32.0-36.0); MEAN CORPUSCULAR VOLUME 88 fl (80-97); MONOCYTES % (AUTO) 6.5 % (3-13); RED BLOOD COUNT 3.83 10^6/uL (3.72-5.28); RED CELL DISTRIBUTION WIDTH 15.2 % (11.5-14.0); SEGMENTED NEUTROPHILS % (AUTO) 68.6 % (42-78); WHITE BLOOD COUNT 12.1 10^3/uL (4.0-10.5)
[2016-11-26 08:44] VITALS: BP 121/74
--- NOTE | 2016-11-26 08:53 | PDOC PROGRESS REPORT ---
Subjective-OB Subjective: Post Delivery Day: 26 year old. Nipples very sore-unsure if she wants to breastfeed. Ready to go home. Physical Exam (OB) Vital Signs: Temp Pulse Resp BP Pulse Ox 97.2 F 59 L 16 135/81 H 98 11/26/16 07:37 11/26/16 07:37 11/26/16 07:37 11/26/16 07:37 11/26/16 07:37 - PIH/Pre-Eclampsia Clonus: Negative - Lochia Lochia Amount: Scant < 10 ml Lochia Color: Rubra/Red - Abdomen Description: Soft, Round Hernia Present: No Bowel Sounds: Normoactive Flatus Presence: Present Stool: Yes Fundal Description: Firm, Midline Fundal Height: u/3 - u/4 Objective-Diagnostic Laboratory: 11/26/16 06:25 11/26/16 06:25 WBC 12.1 H RBC 3.83 Hgb 11.4 L Hct 33.8 L MCV 88 MCH 29.9 MCHC 33.9 RDW 15.2 H Plt Count 251 Seg Neutrophils % 68.6 Lymphocytes % 22.7 Monocytes % 6.5 Eosinophils % 1.7 Basophils % 0.5 Absolute Neutrophils 8.3 H Absolute Lymphocytes 2.7 Absolute Monocytes 0.8 Absolute Eosinophils 0.2 Absolute Basophils 0.1 Assessment and Plan(PN) - Time Spent with Patient Medications reviewed and adjusted accordingly: Yes - Disposition Anticipated Discharge: Home
--- NOTE | 2016-11-26 09:00 | PDOC DISCHARGE SUMMARY ---
Final Diagnosis Discharge Date: 11/26/16 - Final Diagnosis (1) Is this a current diagnosis for this admission?: Yes (2) Vaginal delivery Is this a current diagnosis for this admission?: Yes Discharge Data - Discharge Medication Home Medications: Vit/Iron Fumarate/FA [ Tablet] 1 tab PO DAILY 11/24/16 Gestational Age: 41wks Reason(s) for Admission: Induction of Labor Procedures: Ultrasound Intrapartum Procedure(s): Spontaneous Vaginal Delivery Complication(s): Laceration-Vaginal Laceration-Degree: 2nd - [place] Data Baby 1 Female at 1 minute: 8 at 5 minutes: 9 Weight: 3.289 kg Home with Mother: Yes Complications: No - Diagnosis Test Laboratory: Temp Pulse Resp BP Pulse Ox 97.2 F 59 L 16 135/81 H 98 11/26/16 07:37 11/26/16 07:37 11/26/16 07:37 11/26/16 07:37 11/26/16 07:37 11/24/16 11/24/16 11/25/16 00:39 01:04 07:37 RBC 4.11 4.21 Hgb 12.2 12.2 Hct 35.9 L 37.0 Urine Opiates Screen NEGATIVE 11/26/16 06:25 RBC 3.83 Hgb 11.4 L Hct 33.8 L Urine Opiates Screen - Discharge information/Instructions Discharge Activity: Activity As Tolerated, Balance Activity w/Rest, No Lifting Over 10 Pounds, Pelvic Rest, Slowly Increase Activity, No tub bath Discharge Diet: Regular Disposition: HOME, SELF-CARE Follow [facility] with: [facility] in: 4, Weeks
[2016-11-26] MEDS: SENNOSIDES/DOCUSATE 8.6-50 MG 1 EACH TABLET PO SCH (09:42)
[2016-11-26] MEDS: PRENATAL VITAMIN W-O CA NO5/FE FUMARATE/FA CAPSULE PO SCH (09:42)
[2016-11-26] MEDS: DOCUSATE SODIUM 100 MG CAPSULE PO SCH (09:42)
[2016-11-26] MEDS: FERROUS SULFATE 325 MG TABLET PO SCH (09:42)
[2016-11-26] MEDS: FAMOTIDINE 20 MG TABLET PO SCH (09:42)
== END 2016-11-26 12:23 | disposition home or self-care (01) | DRG 774 ==
LOC: LR 00:27 → 2S 21:58
PROVIDERS: ADMIT Obstetrics & Gynecology; ATTEND Obstetrics & Gynecology
PROC: 10E0XZZ Delivery of Products of Conception, External Approach (ICD-10-PCS; principal; 2016-11-24)
PROC: 0KQM0ZZ Repair Perineum Muscle, Open Approach (ICD-10-PCS; 2016-11-24)
PROC: 4A1HXCZ Monitoring of Products of Conception, Cardiac Rate, External Approach (ICD-10-PCS; 2016-11-24)
PROC: 3E0P7GC Introduction of Other Therapeutic Substance into Female Reproductive, Via Natural or Artificial Opening (ICD-10-PCS; 2016-11-24)
DX: O48.0 Post-term pregnancy (principal); O72.1 Other immediate postpartum hemorrhage; O70.1 Second degree perineal laceration during delivery; O69.81X0 Labor and delivery complicated by cord around neck, without compression, not applicable or unspecified; Z3A.41 41 weeks gestation of pregnancy; Z37.0 Single live birth
CPT/HCPCS: 36415; 80307; 81005; 85025; 85027; 86592; 86850; 86900; 86901; 88307; J2370; J2590; J3010; J3490